=== PATIENT | male | born 1980 | race Caucasian/White ===

== ENCOUNTER 2016-07-04 18:10 | Emergency (ER) | payer BC, OTHER ==
--- NOTE | 2016-07-04 19:01 | ED ---
General Adult HPI - General Chief complaint: Extremity Injury, Upper Stated complaint: thumb pain Time Seen by Provider: 07/04/16 18:19 Source: patient, RN notes reviewed Mode of arrival: ambulatory Limitations: no limitations - History of Present Illness Initial comments: This is a 36-year-old male who presents with right-sided thumb pain after catching his right thumb in a car door yesterday. Patient states he is not having any pain until around 3:30 AM this morning when the pain woke him up. Patient denies any numbness/tingling or weakness. Patient states he did try to drain the thumbnail with a needle earlier today but this did not provide much relief. Patient denies any recent fever, chills, shortness breath, chest pain, abdominal pain, nausea/vomiting/diarrhea, back pain, numbness, tingling, hematuria, headache, or visual changes, or any other complaints. - Related Data Home Medications Medication Instructions Recorded Confirmed Acetaminophen Tab [Tylenol Tab] 1,000 mg PO Q6HR 07/04/16 07/04/16 Ibuprofen [Motrin] 200 - 400 mg PO Q6HR PRN 07/04/16 07/04/16 Lisinopril [Prinivil] 20 mg PO DAILY 07/04/16 07/04/16 Previous Rx's Medication Instructions Recorded QUEtiapine [SEROquel] 25 mg PO HS #7 tab 06/03/15 Allergies Allergy/AdvReac Type Severity Reaction Status Date / Time No Known Allergies Allergy Verified 07/04/16 18:36 Review of Systems ROS Statement: Those systems with pertinent positive or pertinent negative responses have been documented in the HPI. ROS Other: All systems not noted in ROS Statement are negative. Past Medical History Past Medical History: Hypertension Additional Past Medical History / Comment(s): chronic back pain History of Any Multi-Drug Resistant Organisms: None Reported Additional Past Surgical History / Comment(s): epidural shots in back, acl repair Past Psychological History: No Psychological Hx Reported Smoking Status: Never smoker Past Alcohol Use History: None Reported Past Drug Use History: Marijuana General Exam - General Exam Comments Initial Comments: General: The patient is awake and alert, in no distress, and does not appear acutely ill. Neck: The neck is supple, there is no tenderness or JVD. Cardiovascular: There is a regular rate and rhythm. No murmur, rub or gallop is appreciated. Respiratory: Lungs are clear to auscultation, respirations are non-labored, breath sounds are equal. No wheezes, stridor, rales, or rhonchi. Musculoskeletal: There is tenderness to palpation over the distal phalanx of the right first digit. There is ecchymosis and blood collection under the nail of the right first digit. Limited range of motion to the right thumb interphalangeal joint due to pain and swelling. Strength 5/5 and Sensation intact. Radial pulses 2+ bilaterally. Capillary refill is less than 2 seconds. Neurological: A&O x 3. CN II-XII intact, There are no obvious motor or sensory deficits. Coordination appears grossly intact. Speech is normal. Skin: See musculoskeletal. Skin is warm and dry and no rashes or lesions are noted. Psychiatric: Normal mood and affect. Limitations: no limitations Course Vital Signs 07/04/16 18:20 Temperature 97.0 F L Pulse Rate 105 H Respiratory 16 Rate Blood Pressure 170/103 O2 Sat by Pulse 99 Oximetry Medical Decision Making - Medical Decision Making This is a 36-year-old male who presents with a sore right thumb due to getting it stuck in a car door. On physical exam There is tenderness to palpation over the distal phalanx of the right first digit. There is ecchymosis and blood collection under the nail of the right first digit. Limited range of motion to the right thumb interphalangeal joint due to pain and swelling. Strength 5/5 and Sensation intact. Radial pulses 2+ bilaterally. Capillary refill is less than 2 seconds. Patient's elevated blood pressure noted. Patient is asymptomatic at this time and states that he is currently following with his doctor for hypertension since his blood pressure is normally in these ranges. Patient is currently on blood pressure medication at home and does not want treatment in today. An x-ray of the right hand was done and reviewed showing:Negative right hand exam. Reported by Dr. Greenberg. Discussed results with patient. At this time trephination was performed on the right digit's fingernail. There is blood draining from the trephination site. I discussed with patient to rest, ice and use [id number] Tylenol and Motrin as needed for any pain. I discussed If symptoms do not improve in the next 7 days repeat x-rays may be needed to rule out occult fracture. I discussed return parameters. Discussed that patient should follow up with PCP in one to 2 days or return to the EC for any worsening symptoms or for any further concerns. Patient was receptive to this plan and patient will be discharged home. Disposition Clinical Impression: Subungual hematoma of fingernail Disposition: HOME SELF-CARE Condition: Good Instructions: Subungual Hematoma (ED) Additional Instructions: Please rest, ice, elevate and use [id number] Tylenol or Motrin as needed for any pain symptoms. If symptoms do not improve in the next 7 days repeat x- rays may be needed to rule out occult fracture. Please follow-up with family doctor in the next 2 days of symptoms have not improved. Please return to emergency room if the symptoms increase or worsen or for any other concerns. Time of Disposition: 19:23
--- NOTE | 2016-07-04 19:04 | XR ---
EXAMINATION TYPE: XR hand complete RT DATE OF EXAM: 07/04/2016 7:00 PM COMPARISON: NONE HISTORY: Slammed in a car door TECHNIQUE: 3 views FINDINGS: I see no fracture nor dislocation. Metacarpals are intact. Joint spaces are normal. IMPRESSION: Negative right hand exam.
[2016-07-04 19:26] VITALS: BP 170/100; PULSE 70; RESP 18; TEMP 97.9
== END 2016-07-04 19:32 | disposition home or self-care (01) ==
LOC: EC 18:10
DX: S60.111A Contusion of right thumb with damage to nail, initial encounter (principal); I10 Essential (primary) hypertension; Z79.899 Other long term (current) drug therapy; W23.0XXA Caught, crushed, jammed, or pinched between moving objects, initial encounter
CPT/HCPCS: 10160; 99283

== ENCOUNTER 2016-07-04 22:06 | Emergency (ER) | payer BC, OTHER ==
[2016-07-04] MEDS ORDERED: SODIUM CHLORIDE 0.9% 500 ML IV ONE (22:14)
--- NOTE | 2016-07-04 22:17 | ED ---
General Adult HPI - General Stated complaint: Seizure Time Seen by Provider: 07/04/16 22:06 Source: RN notes reviewed - History of Present Illness Initial comments: This is a 36-year-old male presents to the emergency department after having had a seizure that lasted about one half minutes according to EMS his saw him on a couch started to seize last one half minutes and then he was postictal. Patient doesn't remember any of this. Patient states he did have one seizure last summer she was never had one before that or after that. Patient states yesterday smashed his thumb at work he came to the emergency department and went home and took some tramadol for pain. Patient states he really had tramadol from something else so he took it for the pain. Patient was unaware the tramadol can lower seizure threshold. Patient states aside from that he has been feeling fine he has no fever chills cough colds. Patient denies any shortness of breath or chest pain. Patient denies any abdominal pain patient denies nausea vomiting diarrhea. Patient denies any headache patient denies numbness weakness. Patient denies any neck stiffness. Patient denies lightheadedness dizziness or near syncopal episode. Patient denies any recent injury or trauma. Patient denies any recent alcohol use or drug use. - Related Data Home Medications Medication Instructions Recorded Confirmed Acetaminophen Tab [Tylenol Tab] 1,000 mg PO Q6HR 07/04/16 07/04/16 Ibuprofen [Motrin] 200 - 400 mg PO Q6HR PRN 07/04/16 07/04/16 Lisinopril [Prinivil] 20 mg PO DAILY 07/04/16 07/04/16 Previous Rx's Medication Instructions Recorded QUEtiapine [SEROquel] 25 mg PO HS #7 tab 06/03/15 Allergies Allergy/AdvReac Type Severity Reaction Status Date / Time No Known Allergies Allergy Verified 07/04/16 18:36 Review of Systems ROS Statement: Those systems with pertinent positive or pertinent negative responses have been documented in the HPI. ROS Other: All systems not noted in ROS Statement are negative. Past Medical History Past Medical History: Hypertension Additional Past Medical History / Comment(s): chronic back pain History of Any Multi-Drug Resistant Organisms: None Reported Additional Past Surgical History / Comment(s): epidural shots in back, acl repair Past Psychological History: No Psychological Hx Reported Smoking Status: Never smoker Past Alcohol Use History: None Reported Past Drug Use History: Marijuana General Exam - General Exam Comments Initial Comments: GENERAL: Patient is well-developed and well-nourished. Patient is nontoxic and well- hydrated and is in no acute distress. ENT: Neck is soft and supple. No significant lymphadenopathy is noted. Oropharynx is clear. Moist mucous membranes. Neck has full range of motion without eliciting any pain. EYES: The sclera were anicteric and conjunctiva were pink and moist. Extraocular movements were intact and pupils were equal round and reactive to light. Eyelids were unremarkable. PULMONARY: Unlabored respirations. Good breath sounds bilaterally. No audible rales rhonchi or wheezing was noted. CARDIOVASCULAR: Patient is tachycardic at about 100 beats minute ABDOMEN: Soft and nontender with normal bowel sounds. No palpable organomegaly was noted. There is no palpable pulsatile mass. SKIN: Skin is clear with no lesions or rashes and otherwise unremarkable. NEUROLOGIC: Patient is alert and oriented x3. Cranial nerves II through XII are grossly intact. Motor and sensory are also intact. Normal speech, volume and content. Symmetrical smile. MUSCULOSKELETAL: Normal extremities with adequate strength and full range of motion. No lower extremity swelling or edema. No calf tenderness. LYMPHATICS: No significant lymphadenopathy is noted PSYCHIATRIC: Normal psychiatric evaluation. Normal interpersonal interactions appears functionally intact in deals appropriately with others. No signs of depression. No signs of anxiety. Course Vital Signs 07/04/16 07/04/16 07/04/16 22:20 22:39 23:14 Temperature 98.1 F 98.5 F Pulse Rate 92 114 H 109 H Respiratory 18 18 20 Rate Blood Pressure 168/101 165/81 159/89 O2 Sat by Pulse 94 L 96 99 Oximetry Medical Decision Making - Medical Decision Making EKG shows sinus tachycardia at 123 bpm OK interval is 160s to [place] is 82 QT interval 320 QTC is 458. Patient's EKG shows no ST segment elevation or depression or T-wave abdomen is noted - Lab Data Result diagrams: 07/04/16 22:25 07/04/16 22:25 Lab Results 07/04/16 07/04/16 07/04/16 Range/Units 22:25 22:25 23:10 WBC 12.2 H (3.8-10.6) k/uL RBC 5.18 (4.30-5.90) m/uL Hgb 15.7 (13.0-17.5) gm/dL Hct 46.0 (39.0-53.0) % MCV 88.8 (80.0-100.0) fL MCH 30.4 (25.0-35.0) pg MCHC 34.2 (31.0-37.0) g/dL RDW 13.0 (11.5-15.5) % Plt Count 236 (150-450) k/uL Neutrophils % 66 % Lymphocytes % 22 % Monocytes % 6 % Eosinophils % 4 % Basophils % 1 % Neutrophils # 8.0 H (1.3-7.7) k/uL Lymphocytes # 2.7 (1.0-4.8) k/uL Monocytes # 0.8 (0-1.0) k/uL Eosinophils # 0.4 (0-0.7) k/uL Basophils # 0.1 (0-0.2) k/uL Sodium 141 (137-145) mmol/L Potassium 3.4 L (3.5-5.1) mmol/L Chloride 103 (98-107) mmol/L Carbon Dioxide 22 (22-30) mmol/L Anion Gap 16 mmol/L BUN 13 (9-20) mg/dL Creatinine 0.90 (0.66-1.25) mg/dL Est GFR (MDRD) Af Amer >60 (>60 ml/min/1.73 sqM) Est GFR (MDRD) Non-Af >60 (>60 ml/min/1.73 sqM) Glucose 120 H (74-99) mg/dL Calcium 9.4 (8.4-10.2) mg/dL Total Bilirubin 0.8 (0.2-1.3) mg/dL AST 33 (17-59) U/L ALT 57 (21-72) U/L Alkaline Phosphatase 63 (38-126) U/L Total Protein 7.9 (6.3-8.2) g/dL Albumin 4.9 (3.5-5.0) g/dL Urine Opiates Screen Detected H (NotDetected) Ur Oxycodone Screen Detected H (NotDetected) Urine Methadone Screen Not Detected (NotDetected) Ur Propoxyphene Screen Not Detected (NotDetected) Ur Barbiturates Screen Not Detected (NotDetected) U Tricyclic Antidepress Not Detected (NotDetected) Ur Phencyclidine Scrn Not Detected (NotDetected) Ur Amphetamines Screen Not Detected (NotDetected) U Methamphetamines Scrn Not Detected (NotDetected) U Benzodiazepines Scrn Detected H (NotDetected) Urine Cocaine Screen Not Detected (NotDetected) U Marijuana (THC) Screen Detected H (NotDetected) Disposition Clinical Impression: Generalized seizure Disposition: HOME SELF-CARE Instructions: Recurrent Seizures in Adults (ED) Additional Instructions: Patient cannot drive for 6 months. Patient should stop tramadol because it lowers the seizure threshold. Patient should follow-up with neurology as soon as possible Referrals: Efraín Bunch MD [Primary Care Provider] - 1-2 days Time of Disposition: 23:39
[2016-07-04 22:31] LABS: Basophils # (A) 0.1 k/uL (0-0.2); Basophils % (A) 1 %; CH 31.4; CHCM 35.5; Eosinophils # (A) 0.4 k/uL (0-0.7); Eosinophils % (A) 4 %; HDW 2.61; HGB 15.7 gm/dL (13.0-17.5); Luc # (Auto) 0.22; Luc % (Auto) 2; Lymphocytes # (A) 2.7 k/uL (1.0-4.8); Lymphocytes % (A) 22 %; MCH 30.4 pg (25.0-35.0); MCHC 34.2 g/dL (31.0-37.0); MCV 88.8 fL (80.0-100.0); Mean Platelet Volume 7.6; Monocytes # (A) 0.8 k/uL (0-1.0); Monocytes % (A) 6 %; Neutrophils % (A) 66 %; RBC 5.18 m/uL (4.30-5.90); WBC 12.2 k/uL (3.8-10.6); WBC (Perox) 12.05
[2016-07-04 22:40] LABS: ALT 57 U/L (21-72); AST 33 U/L (17-59); Alkaline Phosphatase 63 U/L (38-126); Anion Gap 16 mmol/L; Blood Urea Nitrogen 13 mg/dL (9-20); Calcium 9.4 mg/dL (8.4-10.2); Carbon Dioxide 22 mmol/L (22-30); Chloride 103 mmol/L (98-107); Glucose 120 mg/dL (74-99); Non-African American GFR(MDRD) >60 (>60 ml/min/1.73 sqM); Potassium 3.4 mmol/L (3.5-5.1); Sodium 141 mmol/L (137-145); Total Bilirubin 0.8 mg/dL (0.2-1.3); Total Protein 7.9 g/dL (6.3-8.2)
[2016-07-04 23:15] VITALS: BP 159/89; PULSE 109; RESP 20; TEMP 98.5
== END 2016-07-04 23:44 | disposition home or self-care (01) ==
LOC: EC 22:06
DX: G40.909 Epilepsy, unspecified, not intractable, without status epilepticus (principal); I10 Essential (primary) hypertension; Z79.899 Other long term (current) drug therapy
CPT/HCPCS: 36415; 80053; 80306; 85025; 93005; 96360; 99284

== ENCOUNTER 2016-07-30 18:51 | Emergency (ER) | payer BC, OTHER ==
[2016-07-30 19:12] VITALS: BP 130/87; PULSE 87; RESP 20; TEMP 99.4
--- NOTE | 2016-07-30 19:28 | ED ---
General Adult HPI - General Chief complaint: Dental/Oral Stated complaint: broken tooth Time Seen by Provider: 07/30/16 19:15 Source: patient, RN notes reviewed Mode of arrival: ambulatory Limitations: no limitations - History of Present Illness Initial comments: This is a 36-year-old male presents with right-sided dental pain 1 month. Patient states he has a fractured tooth but has only been bothering him for the last few days. Patient denies any fever but states he has had some chills. Patient is able to eat soft foods. Patient denies any facial swelling, purulent drainage or foul odor. Patient states he is able to get into his dentist on but he cant wait that long. Patient denies any recent shortness breath, chest pain, abdominal pain, nausea/vomiting/diarrhea, back pain, numbness, tingling, hematuria, headache, or visual changes, or any other complaints. - Related Data Home Medications Medication Instructions Recorded Confirmed Ibuprofen [Advil] 200 - 400 mg PO Q8HR PRN 07/30/16 07/30/16 levETIRAcetam [Keppra] 500 mg PO Q12HR 07/30/16 07/30/16 Previous Rx's Medication Instructions Recorded HYDROcodone/APAP 5-325MG [Laurens 1 tab PO Q6HR #8 tab 07/30/16 5-325] Penicillin V Potassium [Pen Vee K] 500 mg PO BID 5 Days 07/30/16 Allergies Allergy/AdvReac Type Severity Reaction Status Date / Time tramadol AdvReac SEZIURES Verified 07/30/16 19:22 Review of Systems ROS Statement: Those systems with pertinent positive or pertinent negative responses have been documented in the HPI. ROS Other: All systems not noted in ROS Statement are negative. Past Medical History Past Medical History: Hypertension Additional Past Medical History / Comment(s): chronic back pain History of Any Multi-Drug Resistant Organisms: None Reported Additional Past Surgical History / Comment(s): epidural shots in back, acl repair Past Psychological History: No Psychological Hx Reported Smoking Status: Never smoker Past Alcohol Use History: None Reported Past Drug Use History: Marijuana General Exam - General Exam Comments Initial Comments: General: The patient is awake and alert, in no distress, and does not appear acutely ill. Eye: Pupils are equal, round and reactive to light, extra-ocular movements are intact. No nystagmus. There is normal conjunctiva bilaterally. No signs of icterus. Ears: TMs pink and pearly with intact cone of light bilaterally. Normal external ear canals Nose: Nasal turbinates pink and moist Mouth and throat: There is a fractured tooth #5, with no surrounding erythema, very little drainage or sign of abscess. This area is tender to palpation. There are moist mucous membranes and no oral lesions. Neck: The neck is supple, there is no tenderness or JVD. Cardiovascular: There is a regular rate and rhythm. No murmur, rub or gallop is appreciated. Respiratory: Lungs are clear to auscultation, respirations are non-labored, breath sounds are equal. No wheezes, stridor, rales, or rhonchi. Musculoskeletal: Normal ROM, no tenderness. Strength 5/5. Sensation intact. Radial pulses equal bilaterally 2+. Neurological: A&O x 3. CN II-XII intact, There are no obvious motor or sensory deficits. Coordination appears grossly intact. Speech is normal. Skin: Skin is warm and dry and no rashes or lesions are noted. Psychiatric: Cooperative, appropriate mood & affect, normal judgment. Limitations: no limitations Course Vital Signs 07/30/16 19:10 Temperature 99.4 F Pulse Rate 87 Respiratory 20 Rate Blood Pressure 130/87 O2 Sat by Pulse 97 Oximetry Medical Decision Making - Medical Decision Making This is a 36-year-old male presents with right-sided dental pain. On physical exam patient is afebrile in the EC. There is a fractured tooth #5, with no surrounding erythema, very little drainage or sign of abscess. This area is tender to palpation. There are moist mucous membranes and no oral lesions. Discussed the patient with on a course of antibiotics. Discussed with the patient will be given Laurens for breakthrough pain. Patient is taking Laurens was no problems. I discussed the patient should use Tylenol and Motrin for the pain first. Discussed that patient needs to follow-up with his dentist as soon as possible. I discussed return parameters.Discussed that patient should follow up with PCP in one to 2 days or return to the EC for any worsening symptoms or any further concerns. Patient was receptive to this plan patient was discharged home. Disposition Clinical Impression: Pain, dental Disposition: HOME SELF-CARE Condition: Good Instructions: Toothache (ED) Additional Instructions: Please finish the entire course of antibiotics. Please use Tylenol and Motrin for pain. Please only use Laurens for breakthrough pain. Please do not drive, drink alcohol or go to work while taking Laurens as it may make you drowsy. Please follow-up with your dentist as already scheduled. [facility] dental plan: [address] [place] [address], . [employer]: Have to pay $50 for x-rays and the rest is covered. [phone].Please use medication as discussed. Please follow-up with family doctor in the next 2 days of symptoms have not improved. Please return to emergency room if the symptoms increase or worsen or for any other concerns. Prescriptions: HYDROcodone/APAP 5-325MG [Laurens 5-325] 1 tab PO Q6HR #8 tab Penicillin V Potassium [Pen Vee K] 500 mg PO BID 5 Days Time of Disposition: 19:24
== END 2016-07-30 19:33 | disposition home or self-care (01) ==
LOC: EC 18:51
DX: S02.5XXA Fracture of tooth (traumatic), initial encounter for closed fracture (principal); K08.89 Other specified disorders of teeth and supporting structures; Z88.5 Allergy status to narcotic agent; Z79.899 Other long term (current) drug therapy; X58.XXXA Exposure to other specified factors, initial encounter
CPT/HCPCS: 99283

== ENCOUNTER → 2016-08-14 | Outpatient (CLI) | payer OTHER ==
--- NOTE | 2016-08-15 05:44 | EEG ---
DATE OF SERVICE: 08/14/2016 REASON FOR TESTING: Seizure. AGE: 36Y CURRENT ANTIEPILEPTIC MEDICATIONS: Lamictal. DESCRIPTION OF THE PROCEDURE: This EEG was performed using a 21-channel digital electroencephalograph, following the international 10-20 system. DESCRIPTION OF THE RECORDING: From the beginning of the tracing, and with the patient's eyes closed, the background rhythm was mostly consisting of 9 Hz alpha frequency in the posterior occipital leads. No obvious asymmetry is seen. Photic stimulation was performed with a minimal driving response seen. No pathological waves were elicited. Hyperventilation was performed with a mild build-up of amplitude seen. Again, no pathological waves were elicited. The patient does reach stage II of sleep during the tracing and occasional sleep spindles are seen. No epileptiform discharges were seen. His EKG lead showed a regular rate and rhythm. INTERPRETATION: This asleep and awake EEG can be considered within normal limits. There was no asymmetry seen. No epileptiform discharges were noticed. The absence of epileptiform discharges does not rule out the diagnosis of epilepsy, therefore, clinical correlation is recommended.
== END | disposition home or self-care (01) ==
LOC: NEUROMAIN 09:25
PROVIDERS: ATTEND Psychiatry & Neurology Neurology
DX: G40.909 Epilepsy, unspecified, not intractable, without status epilepticus (principal); G47.00 Insomnia, unspecified; F41.9 Anxiety disorder, unspecified; Z79.899 Other long term (current) drug therapy
CPT/HCPCS: 95819

== ENCOUNTER → 2016-08-15 | Outpatient (CLI) | payer OTHER ==
--- NOTE | 2016-08-15 21:31 | MR ---
MRI of the brain with and without contrast HISTORY: Seizure TECHNIQUE: T1-weighted sagittal, T2, FLAIR, and diffusion axial, postcontrast T1 axi al and coronal views of the brain are submitted. CONTRAST: 19 mL of MultiHance COMPARISON: 08/29/2011 MRI, CT brain 06/03/2015 FINDINGS: There is no evidence of acute ischemia. The ventricles, basal cisterns, and sulci overlying the co nvexities are consistent with the patient's age. There is no mass effect or enhancing mass. Craniocervical junction maintained. Sella turcica has a normal appearance. No evidence of cerebellopo ntine angle mass. Changes of chronic sinusitis noted. WHITE MATTER: No sizable abnormal areas of signal within the white matter. IMPRESSION: 1. No acute intracranial process. 2. Mild chronic sinusitis.
== END | disposition home or self-care (01) ==
LOC: RADMRIMAIN 20:08
PROVIDERS: ATTEND Psychiatry & Neurology Neurology
DX: F41.9 Anxiety disorder, unspecified (principal); G47.00 Insomnia, unspecified; G40.909 Epilepsy, unspecified, not intractable, without status epilepticus
CPT/HCPCS: 70553; A9577

== ENCOUNTER 2016-11-04 12:48 | Emergency (ER) | payer OTHER ==
[2016-11-04 13:00] VITALS: BP 144/84; PULSE 125; RESP 16; TEMP 98.7
[2016-11-04] MEDS ORDERED: SODIUM CHLORIDE 0.9% 1,000 ML IV STA (13:11)
[2016-11-04] MEDS ORDERED: HYDROmorphone 1 MG/ML 1 ML SYRINGE IVP STA ×2 (13:24→15:03)
[2016-11-04 13:29] LABS: Glucose,Whole Blood 142 mg/dL (75-99)
--- NOTE | 2016-11-04 13:29 | ED ---
Seizure HPI - General Chief Complaint: Seizure Stated Complaint: seizure Time Seen by Provider: 11/04/16 13:11 Source: patient, EMS, RN notes reviewed Mode of arrival: EMS Limitations: no limitations - History of Present Illness Initial Comments: Patient is a 36-year-old male presents emergency for evaluation of seizure. Patient states he has a history of seizures. Patient is having increasing seizures over the past year and a half. Patient states the last seizure was about a week and a half ago and he is admitted at [facility] for 5 days. Patient states he has a neurologist at [facility]. Patient states today he had another seizure. Patient's is present with patient. Patient's witnessed the incident. Patient's states that patient was sitting on a recliner and fell forward hitting his face having a total tonic-clonic seizure. Patient's states the seizure lasted about 2-1/2 minutes. Patient's states that patient did have urinary incontinence. Patient's states this is the longest seizure patient has had. Patient's states that patient was postictal after the incident. Patient states he was recently switched from Keppra to Trileptal about a week ago. Patient denies alcohol use or illicit drug use. Patient also states that increasing low back pain. Patient states he has a history degenerative disc disease and after the seizure he began having increasing pain. Patient denies paresthesias. Patient denies saddle anesthesia. Patient denies current urinary or fecal incontinence. Patient denies chest pain or shortness of breath. Patient denies headache or dizziness. Patient denies fevers or chills. - Related Data Home Medications Medication Instructions Recorded Confirmed Ibuprofen [Advil] 200 - 400 mg PO Q8HR PRN 07/30/16 11/04/16 ALPRAZolam [Xanax] 1 mg PO DAILY PRN 11/04/16 11/04/16 HYDROcodone/APAP 5-325MG [[place] 1 tab PO Q4HR PRN 11/04/16 11/04/16 5-325] Lisinopril 20 mg PO DAILY 11/04/16 11/04/16 Mirtazapine [Remeron] 45 mg PO HS PRN 11/04/16 11/04/16 OXcarbazepine [Trileptal] 300 mg PO BID 11/04/16 11/04/16 Allergies Allergy/AdvReac Type Severity Reaction Status Date / Time levetiracetam [From Keppra] Allergy Unknown Verified 11/04/16 13:27 clonazepam AdvReac Confusion Verified 11/04/16 13:27 lamotrigine [From Lamictal] AdvReac Confusion Verified 11/04/16 13:27 tramadol AdvReac SEZIURES Verified 11/04/16 13:27 Review of Systems ROS Statement: Those systems with pertinent positive or pertinent negative responses have been documented in the HPI. ROS Other: All systems not noted in ROS Statement are negative. Past Medical History Past Medical History: Hypertension, Seizure Disorder Additional Past Medical History / Comment(s): chronic back pain History of Any Multi-Drug Resistant Organisms: None Reported Additional Past Surgical History / Comment(s): epidural shots in back, acl repair, torn mrl right knee, Past Psychological History: No Psychological Hx Reported Smoking Status: Never smoker Past Alcohol Use History: None Reported Past Drug Use History: Marijuana General Exam - General Exam Comments Initial Comments: Sitting in exam room, no acute distress. Limitations: no limitations General appearance: alert, in no apparent distress Head exam: Present: normal inspection. Absent: atraumatic (Slight amount of ecchymosis over right inferior orbit) Eye exam: Present: normal appearance, PERRL, EOMI Pupils: Present: normal accommodation ENT exam: Present: normal exam, other (No lacerations noted inside of the mouth. ) Neck exam: Present: normal inspection Respiratory exam: Present: normal lung sounds bilaterally. Absent: respiratory distress Cardiovascular Exam: Present: normal rhythm, tachycardia, normal heart sounds Extremities exam: Present: normal inspection Back exam: Present: normal inspection Neurological exam: Present: alert, oriented X3, CN II-XII intact Expanded Patient oriented to: Present: person, place, time Speech: Present: fluid speech Cranial nerves: EOM's Intact: Normal, Facial Sensation: Normal Sensory exam: Upper Extremity Light Touch: Normal, Lower Extremity Light Touch: Normal Motor strength exam: RUE: 5, LUE: 5, RLE: 5, LLE: 5 Eye Response: (4) open spontaneously Motor Response: (6) obeys commands Verbal Response: (5) oriented Psychiatric exam: Present: normal affect, normal mood Skin exam: Present: warm, dry, intact, normal color. Absent: rash Course Vital Signs 11/04/16 12:55 Temperature 98.7 F Pulse Rate 125 H Respiratory 16 Rate Blood Pressure 144/84 O2 Sat by Pulse 95 Oximetry Medical Decision Making - Medical Decision Making Patient is a 36-year-old male presents emergency room for evaluation post seizure. No seizure activity while he was here. Patient was completely alert and oriented 3 while he was here. Labs showed no concerning findings. Brain and C-spine CT negative for any acute findings. Facial CT negative for any acute findings. Results discussed with patient. Advised patient to follow-up with his neurologist tomorrow. Patient states he understands everything that was discussed with him. Return parameters discussed. Case discussed with Dr. Babin. - Lab Data Result diagrams: 11/04/16 13:05 11/04/16 13:05 Lab Results 11/04/16 11/04/16 11/04/16 Range/Units 13:05 13:05 13:28 WBC 11.6 H (3.8-10.6) k/uL RBC 5.23 (4.30-5.90) m/uL Hgb 17.0 (13.0-17.5) gm/dL Hct 46.0 (39.0-53.0) % MCV 88.0 (80.0-100.0) fL MCH 32.5 (25.0-35.0) pg MCHC 36.9 (31.0-37.0) g/dL RDW 13.6 (11.5-15.5) % Plt Count 232 (150-450) k/uL Neutrophils % 79 % Lymphocytes % 12 % Monocytes % 6 % Eosinophils % 3 % Basophils % 0 % Neutrophils # 9.1 H (1.3-7.7) k/uL Lymphocytes # 1.4 (1.0-4.8) k/uL Monocytes # 0.7 (0-1.0) k/uL Eosinophils # 0.3 (0-0.7) k/uL Basophils # 0.0 (0-0.2) k/uL Sodium 144 (137-145) mmol/L Potassium 3.9 (3.5-5.1) mmol/L Chloride 107 (98-107) mmol/L Carbon Dioxide 25 (22-30) mmol/L Anion Gap 12 mmol/L BUN 11 (9-20) mg/dL Creatinine 0.84 (0.66-1.25) mg/dL Est GFR (MDRD) Af Amer >60 (>60 ml/min/1.73 sqM) Est GFR (MDRD) Non-Af >60 (>60 ml/min/1.73 sqM) Glucose 165 H (74-99) mg/dL POC Glucose (mg/dL) 142 H (75-99) mg/dL POC Glu Drier Take Off Tender ID Vaishali Huddleston Calcium 9.9 (8.4-10.2) mg/dL Total Bilirubin 0.8 (0.2-1.3) mg/dL AST 46 (17-59) U/L ALT 70 (21-72) U/L Alkaline Phosphatase 60 (38-126) U/L Total Protein 7.9 (6.3-8.2) g/dL Albumin 4.9 (3.5-5.0) g/dL Urine Color Urine Appearance (Clear) Urine pH (5.0-8.0) Ur Specific [place] (1.001-1.035) Urine Protein (Negative) Urine Glucose (UA) (Negative) Urine Ketones (Negative) Urine Blood (Negative) Urine Nitrite (Negative) Urine Bilirubin (Negative) Urine Urobilinogen (<2.0) mg/dL Ur Leukocyte Esterase (Negative) Urine RBC (0-5) /hpf Urine WBC (0-5) /hpf Urine Bacteria (None) /hpf Hyaline Casts (0-2) /lpf Urine Mucus (None) /hpf Urine Sperm (None) /hpf Salicylates <1.0 mg/dL Urine Opiates Screen (NotDetected) Ur Oxycodone Screen (NotDetected) Urine Methadone Screen (NotDetected) Ur Propoxyphene Screen (NotDetected) Acetaminophen <10.0 ug/mL Ur Barbiturates Screen (NotDetected) U Tricyclic Antidepress (NotDetected) Ur Phencyclidine Scrn (NotDetected) Ur Amphetamines Screen (NotDetected) U Methamphetamines Scrn (NotDetected) U Benzodiazepines Scrn (NotDetected) Urine Cocaine Screen (NotDetected) U Marijuana (THC) Screen (NotDetected) Serum Alcohol <10 mg/dL 11/04/16 Range/Units 14:12 WBC (3.8-10.6) k/uL RBC (4.30-5.90) m/uL Hgb (13.0-17.5) gm/dL Hct (39.0-53.0) % MCV (80.0-100.0) fL MCH (25.0-35.0) pg MCHC (31.0-37.0) g/dL RDW (11.5-15.5) % Plt Count (150-450) k/uL Neutrophils % % Lymphocytes % % Monocytes % % Eosinophils % % Basophils % % Neutrophils # (1.3-7.7) k/uL Lymphocytes # (1.0-4.8) k/uL Monocytes # (0-1.0) k/uL Eosinophils # (0-0.7) k/uL Basophils # (0-0.2) k/uL Sodium (137-145) mmol/L Potassium (3.5-5.1) mmol/L Chloride (98-107) mmol/L Carbon Dioxide (22-30) mmol/L Anion Gap mmol/L BUN (9-20) mg/dL Creatinine (0.66-1.25) mg/dL Est GFR (MDRD) Af Amer (>60 ml/min/1.73 sqM) Est GFR (MDRD) Non-Af (>60 ml/min/1.73 sqM) Glucose (74-99) mg/dL POC Glucose (mg/dL) (75-99) mg/dL POC Glu Drier Take Off Tender ID Calcium (8.4-10.2) mg/dL Total Bilirubin (0.2-1.3) mg/dL AST (17-59) U/L ALT (21-72) U/L Alkaline Phosphatase (38-126) U/L Total Protein (6.3-8.2) g/dL Albumin (3.5-5.0) g/dL Urine Color Yellow Urine Appearance Clear (Clear) Urine pH 5.5 (5.0-8.0) Ur Specific [place] 1.016 (1.001-1.035) Urine Protein 1+ H (Negative) Urine Glucose (UA) Negative (Negative) Urine Ketones 1+ H (Negative) Urine Blood Small H (Negative) Urine Nitrite Negative (Negative) Urine Bilirubin Negative (Negative) Urine Urobilinogen <2.0 (<2.0) mg/dL Ur Leukocyte Esterase Negative (Negative) Urine RBC 1 (0-5) /hpf Urine WBC 2 (0-5) /hpf Urine Bacteria Rare H (None) /hpf Hyaline Casts 5 H (0-2) /lpf Urine Mucus Rare H (None) /hpf Urine Sperm Rare (None) /hpf Salicylates mg/dL Urine Opiates Screen Not Detected (NotDetected) Ur Oxycodone Screen Not Detected (NotDetected) Urine Methadone Screen Not Detected (NotDetected) Ur Propoxyphene Screen Not Detected (NotDetected) Acetaminophen ug/mL Ur Barbiturates Screen Not Detected (NotDetected) U Tricyclic Antidepress Not Detected (NotDetected) Ur Phencyclidine Scrn Not Detected (NotDetected) Ur Amphetamines Screen Detected H (NotDetected) U Methamphetamines Scrn Not Detected (NotDetected) U Benzodiazepines Scrn Detected H (NotDetected) Urine Cocaine Screen Not Detected (NotDetected) U Marijuana (THC) Screen Detected H (NotDetected) Serum Alcohol mg/dL - Radiology Data Radiology results: report reviewed, image reviewed Disposition Clinical Impression: Seizure disorder Disposition: HOME SELF-CARE Condition: Good Instructions: Recurrent Seizures in Adults (ED) Additional Instructions: Continue taking all prescribed medications as directed. Please follow-up with neurologist tomorrow. If any new symptom arises or symptoms worsen, return to ER as soon as possible. Referrals: Zena Villavicencio MD [Primary Care Provider] - 1-2 days Time of Disposition: 15:01
[2016-11-04 13:35] LABS: Basophils % (A) 0 %; CH 31.7; CHCM 36.2; Eosinophils # (A) 0.3 k/uL (0-0.7); Eosinophils % (A) 3 %; HDW 2.56; Luc # (Auto) 0.13; Luc % (Auto) 1; Lymphocytes # (A) 1.4 k/uL (1.0-4.8); Lymphocytes % (A) 12 %; MCH 32.5 pg (25.0-35.0); MCHC 36.9 g/dL (31.0-37.0); Mean Platelet Volume 7.1; Monocytes # (A) 0.7 k/uL (0-1.0); Monocytes % (A) 6 %; Neutrophils # (A) 9.1 k/uL (1.3-7.7); Neutrophils % (A) 79 %; RBC 5.23 m/uL (4.30-5.90); RDW 13.6 % (11.5-15.5); WBC 11.6 k/uL (3.8-10.6); WBC (Perox) 11.72
[2016-11-04 13:45] LABS: ALT 70 U/L (21-72); AST 46 U/L (17-59); Acetaminophen <10.0 ug/mL; Alcohol <10 mg/dL; Alkaline Phosphatase 60 U/L (38-126); Anion Gap 12 mmol/L; Blood Urea Nitrogen 11 mg/dL (9-20); Calcium 9.9 mg/dL (8.4-10.2); Carbon Dioxide 25 mmol/L (22-30); Chloride 107 mmol/L (98-107); Glucose 165 mg/dL (74-99); Non-African American GFR(MDRD) >60 (>60 ml/min/1.73 sqM); Potassium 3.9 mmol/L (3.5-5.1); Salicylate <1.0 mg/dL; Sodium 144 mmol/L (137-145); Total Bilirubin 0.8 mg/dL (0.2-1.3); Total Protein 7.9 g/dL (6.3-8.2)
[2016-11-04 14:42] LABS: Appearance,Urine Clear (Clear); Bacteria,Urine Rare /hpf; Bilirubin,Urine Negative (Negative); Glucose,Urine (UA) Negative (Negative); Ketones,Urine 1+ (Negative); Leukocyte Esterase,Urine Negative (Negative); Mucus,Urine Rare /hpf; Nitrite,Urine Negative (Negative); PH, Urine 5.5 (5.0-8.0); Particle Count 3954; Protein,Urine 1+ (Negative); RBC,Urine 1 /hpf (0-5); Specific Gravity,Urine 1.016 (1.001-1.035); Sperm,Urine Rare /hpf; UA Billing (MACRO vs. MICRO) MICRO; Urobilinogen,Urine <2.0 mg/dL (<2.0); WBC,Urine 2 /hpf (0-5)
--- NOTE | 2016-11-04 14:43 | CT ---
EXAMINATION TYPE: CT facial bones wo con DATE OF EXAM: 11/04/2016 2:01 PM COMPARISON: NONE HISTORY: Seizure today with frontal and facial injuries. Complains of headache and facial pain. CT DLP: 2511 mGycm Automated exposure control for dose reduction was used. TECHNIQUE: CT scan of the sinuses is performed without contrast, axial images are obtained, coronal r eformatted images are also reviewed. FINDINGS: The orbital margins are intact. There is no evidence of a blowout fracture. There is normal aeration of the paranasal sinuses. The nasal bone appears intact. Zygomatic arches appear intact. Ma ndible appears intact. The temporomandibular joints appear normal. There is no sign of orbital mass. There is mild soft tissue scalp swelling over the frontal bone. IMPRESSION: No fracture. Mild frontal scalp soft tissue swelling.
--- NOTE | 2016-11-04 14:45 | CT ---
EXAMINATION TYPE: CT brain heriberto wo con DATE OF EXAM: 11/04/2016 2:01 PM COMPARISON: NONE HISTORY: Seizure today with frontal and facial injuries. Complains of headache and facial pain. CT DLP: 2511 mGycm Automated exposure control for dose reduction was used. TECHNIQUE: CT scan of the head and cervical spine are performed without contrast. FINDINGS: Ventricles and sulci appear normal. There is no mass effect nor midline shift. There is n o sign of intracranial hemorrhage. The calvarium is intact. The cervical vertebra have normal spacing and alignment. Facet joints appear normal. Skull base is in tact. Prevertebral soft tissues appear normal. IMPRESSION: Normal CT scan of the brain. Normal CT scan of the cervical spine. No fracture.
== END 2016-11-04 16:00 | disposition home or self-care (01) ==
LOC: EC 12:48
DX: G40.909 Epilepsy, unspecified, not intractable, without status epilepticus (principal); S05.11XA Contusion of eyeball and orbital tissues, right eye, initial encounter; R00.0 Tachycardia, unspecified; M54.5 Low back pain; R32 Unspecified urinary incontinence; I10 Essential (primary) hypertension; Z79.899 Other long term (current) drug therapy; Z88.5 Allergy status to narcotic agent; Z88.8 Allergy status to other drugs, medicaments and biological substances; W01.10XA Fall on same level from slipping, tripping and stumbling with subsequent striking against unspecified object, initial encounter; Y93.89 Activity, other specified
CPT/HCPCS: 36415; 93005; 80053; 80183; 85025; 81001; 80306; 83520 ×2; 80320; 72125; 70486; 70450; 99285; 96374; 96376; 96361; J1170

== ENCOUNTER 2016-11-16 13:17 | Emergency (ER) | payer OTHER ==
[2016-11-16 13:56] VITALS: RESP 16
[2016-11-16] MEDS ORDERED: DEXAMETHASONE 4 MG TAB PO STA (14:22)
[2016-11-16 14:29] VITALS: BP 161/111; PULSE 80; TEMP 98.3
--- NOTE | 2016-11-16 14:29 | ED ---
General Adult HPI - General Chief complaint: ENT Stated complaint: Med reaction Time Seen by Provider: 11/16/16 13:37 Source: patient, RN notes reviewed Mode of arrival: ambulatory Limitations: no limitations - History of Present Illness Initial comments: Patient's 36-year-old male who presents emergency room today with a chief complaint of swelling to the right side of the face over the last 3 days. Patient admits that he believes is related to her Trileptal. States dose was increased 2 weeks ago from 300-450 twice a day. Patient states been taking his medication but the last 3 days his noticed some swelling to the right side. feels that his eye closing because the swelling. He denies any other complaints or associated symptoms. is not doctor or neurologist. has not tried any other medications for this. Patient denies any recent fever, chills, shortness of breath, chest pain, back pain, abdominal pain, nausea or vomiting, numbness or tingling, dysuria or hematuria, constipation or diarrhea, visual changes, or any other complaints. - Related Data Home Medications Medication Instructions Recorded Confirmed Ibuprofen [Advil] 200 - 400 mg PO Q8HR PRN 07/30/16 11/16/16 ALPRAZolam [Xanax] 1 mg PO DAILY PRN 11/04/16 11/16/16 HYDROcodone/APAP 5-325MG [[place] 1 tab PO Q4HR PRN 11/04/16 11/16/16 5-325] Lisinopril 20 mg PO DAILY 11/04/16 11/16/16 Mirtazapine [Remeron] 45 mg PO HS PRN 11/04/16 11/16/16 OXcarbazepine [Trileptal] 300 mg PO BID 11/04/16 11/16/16 Allergies Allergy/AdvReac Type Severity Reaction Status Date / Time levetiracetam [From Keppra] Allergy Unknown Verified 11/16/16 14:21 clonazepam AdvReac Confusion Verified 11/16/16 14:21 lamotrigine [From Lamictal] AdvReac Confusion Verified 11/16/16 14:21 tramadol AdvReac SEZIURES Verified 11/16/16 14:21 Review of Systems ROS Statement: Those systems with pertinent positive or pertinent negative responses have been documented in the HPI. ROS Other: All systems not noted in ROS Statement are negative. Past Medical History Past Medical History: Hypertension, Seizure Disorder Additional Past Medical History / Comment(s): chronic back pain History of Any Multi-Drug Resistant Organisms: None Reported Past Surgical History: Orthopedic Surgery Additional Past Surgical History / Comment(s): epidural shots in back, acl repair, torn mrl right knee, Past Psychological History: Anxiety, Bipolar Smoking Status: Never smoker Past Alcohol Use History: None Reported Past Drug Use History: Marijuana General Exam - General Exam Comments Initial Comments: General: The patient is awake and alert, in no distress, and does not appear acutely ill. Eye: Pupils are equal, round and reactive to light, extra-ocular movements are intact. No nystagmus. There is normal conjunctiva bilaterally. No signs of icterus. Ears, nose, mouth and throat: There are moist mucous membranes and no oral lesions. Mild swelling around the right eye. Extraocular movements are intact. No tenderness on exam. Dental pain. Neck: The neck is supple, there is no tenderness or JVD. Cardiovascular: There is a regular rate and rhythm. No murmur, rub or gallop is appreciated. Respiratory: Lungs are clear to auscultation, respirations are non-labored, breath sounds are equal. No wheezes, stridor, rales, or rhonchi. Gastrointestinal: Soft, non-distended, non-tender abdomen without masses or organomegaly noted. There is no rebound or guarding present. No CVA tenderness. Bowel sounds are unremarkable. Musculoskeletal: Normal ROM, no tenderness. Strength 5/5. Sensation intact. Pulses equal bilaterally 2+. Neurological: A&O x 3. CN II-XII intact, There are no obvious motor or sensory deficits. Coordination appears grossly intact. Speech is normal. Skin: Skin is warm and dry and no rashes or lesions are noted. Psychiatric: Cooperative, appropriate mood & affect, normal judgment. Limitations: no limitations Course Vital Signs 11/16/16 11/16/16 13:21 13:55 Temperature 98 F Pulse Rate 78 Respiratory 18 16 Rate Blood Pressure 151/109 161/106 O2 Sat by Pulse 95 Oximetry Medical Decision Making - Medical Decision Making Case discussed in detail with attending physician Dr. Babin. Patient advised to continue taking Trileptal follow-up with his neurologist later today. Given dose of steroids here in the emergency room and advised to use Benadryl and Pepcid. Advised return here to emergency room if any symptoms increase or worsen or for any other concerns. Disposition Clinical Impression: Medication reaction Disposition: HOME SELF-CARE Condition: Good Instructions: Urticaria (ED) Additional Instructions: Please follow-up with your neurologist tomorrow. Please use Benadryl one to 2 tabs every 6 hours and Pepcid 1 tab twice a day for her symptoms. Please return if symptoms increase or worsen or for any other concerns. Referrals: Zena Villavicencio MD [Primary Care Provider] - 1-2 days Time of Disposition: 14:27
== END 2016-11-16 14:40 | disposition home or self-care (01) ==
LOC: EC 13:17
DX: R22.0 Localized swelling, mass and lump, head (principal); T42.1X5A Adverse effect of iminostilbenes, initial encounter; G40.909 Epilepsy, unspecified, not intractable, without status epilepticus; I10 Essential (primary) hypertension; F31.9 Bipolar disorder, unspecified; F41.9 Anxiety disorder, unspecified; Z79.899 Other long term (current) drug therapy; Z88.6 Allergy status to analgesic agent; Z88.8 Allergy status to other drugs, medicaments and biological substances
CPT/HCPCS: 99283; J8540

== ENCOUNTER 2016-12-15 13:28 | Emergency (ER) | payer OTHER ==
[2016-12-15 13:47] VITALS: RESP 18
--- NOTE | 2016-12-15 15:11 | ED ---
General Adult HPI - General Chief complaint: Eye Problems Stated complaint: eye pain Time Seen by Provider: 12/15/16 14:28 Source: patient, family, RN notes reviewed, old records reviewed Mode of arrival: ambulatory Limitations: no limitations - History of Present Illness Initial comments: Chief complaint history of present illness a 36-year-old male here because of recurrent swelling to the right eye and some he wakes up for the past several days. Recent history finds patient had a seizure approximately 40 days ago falling forward. CAT scans and examination at that time of the brain and orbits were normal. The patient return emergency room several weeks later with swelling to the right side of the eye was determined that he may have a be having angioedema associated with his Trileptal. So that medication was stopped. His neurologist is take him off all antiepileptics at this time and put him on sleeping pills which she states he's not had a seizure since starting that regimen. The patient was also seen by an gravity meter operator who stated he had possible right eye infection and put him on some tobramycin ophthalmic drops that worked well for the first 3 days and then the swelling to the eye started again. At this time the patient does not have discharge noted in the in the beginning there is minimal no swelling of the lid now. He has mild anisocoria right eye pupil slightly smaller than the left but no photophobia with light shined in the opposite eye. Significant complaint of decreased visual acuity. States he'll count fingers with only slight blurriness - Related Data Home Medications Medication Instructions Recorded Confirmed ALPRAZolam [Xanax] 1 mg PO TID 11/04/16 12/15/16 Lisinopril 20 mg PO DAILY 11/04/16 12/15/16 ARIPiprazole [Abilify] 15 mg PO HS 12/15/16 12/15/16 HYDROcodone/APAP 7.5-325MG [[place] 1 tab PO Q4H PRN 12/15/16 12/15/16 7.5-325] Tobramycin/Dexamethasone [Tobradex 1 drop RIGHT EYE QID 12/15/16 12/15/16 Ophth Susp] Previous Rx's Medication Instructions Recorded Hydrocodone/Acetaminophen [[place] 1 each PO Q6HR PRN #20 tab 12/15/16 5-325] Allergies Allergy/AdvReac Type Severity Reaction Status Date / Time levetiracetam [From Keppra] Allergy Unknown Verified 12/15/16 14:16 clonazepam AdvReac Confusion Verified 12/15/16 14:16 lamotrigine [From Lamictal] AdvReac Confusion Verified 12/15/16 14:16 oxcarbazepine AdvReac Swelling Verified 12/15/16 14:16 [From Trileptal] tramadol AdvReac SEZIURES Verified 12/15/16 14:16 Review of Systems ROS Statement: Those systems with pertinent positive or pertinent negative responses have been documented in the HPI. Review of systems occasional right sided headache. Headache and pain behind the right eye. Patient is seeing an gravity meter operator. He'll call the office today or tomorrow for recheck. He states since she was placed on sleep medication and [place] for his chronic back pain exact been doing better. When he wakes up in the morning the right eye is swollen shut but not with crusty discharge. No foreign body sensation. Denies any change in visual acuity only slightly blurred vision. Able to count fingers at a distance. Pulses are reviewed. Past medical problems significant for anxiety, bipolar disorder as well as hypertension and seizure disorder chronic back pain. He has ALLERGIES to clonazepam, clonazepam, oxcarbazepine, tramadol, lamotrigine. ROS Other: All systems not noted in ROS Statement are negative. Past Medical History Past Medical History: Hypertension, Seizure Disorder Additional Past Medical History / Comment(s): chronic back pain, torn mcl History of Any Multi-Drug Resistant Organisms: None Reported Past Surgical History: Orthopedic Surgery Additional Past Surgical History / Comment(s): epidural shots in back, acl repair, torn mcl right knee, Past Psychological History: ADD/ADHD, Anxiety, Bipolar, Depression Smoking Status: Never smoker Past Alcohol Use History: None Reported Past Drug Use History: Marijuana General Exam - General Exam Comments Initial Comments: General: The patient is awake and alert, in no distress, and does not appear acutely ill. Complains of a right eye lid swelling he stay for the past several days gone now. Not crusted shut. She swollen lid right side only. Vital signs temperature 98.4 pulse 76 respiratory rate 18 pulse ox 98% room air blood pressure 163/105 Eye: Pupil slightly smaller than left pupil. Both reactive. Mild photophobia with right pupil examination but not with left pupil examination. Finger counting at a distance normal. He describes a slightly blurry. No pain to the bones around the eye. Eye lids not swollen., round and reactive to light, extra- ocular movements are intact; there is normal conjunctiva bilaterally. No signs of icterus. Ears, nose, mouth and throat: There are moist mucous membranes Neck: The neck is supple, Cardiovascular: There is a regular rate and rhythm. No murmur, rub or gallop is appreciated. Respiratory: Lungs are clear to auscultation, respirations are non-labored, breath sounds are equal. No wheezes, stridor, rales, or rhonchi. Neurological: No neuro deficits Psychiatric: Cooperative, appropriate mood & affect, normal judgment. History of bipolar disorder Limitations: no limitations Course Vital Signs 12/15/16 13:42 Temperature 98.4 F Pulse Rate 76 Respiratory 18 Rate Blood Pressure 163/105 O2 Sat by Pulse 98 Oximetry Medical Decision Making - Medical Decision Making Decision-making. The patient will stop with the eyedrops at this time that would been used for an eye infection as he has no evidence of any problem at this time. He does have an appointment and will follow up with his eye doctor day after tomorrow. He is to call to get in sooner. He is to continue his home medications as prescribed by his neurologist. He has been taking [place] for back pain as well. His has been distributing the medications. Disposition Clinical Impression: Angioedema Disposition: HOME SELF-CARE Condition: Fair Instructions: Angioedema (ED) Additional Instructions: Take medications as directed follow up with your family doctor, neurologist and gravity meter operator Prescriptions: Hydrocodone/Acetaminophen [[place] 5-325] 1 each PO Q6HR PRN #20 tab PRN Reason: Pain Referrals: Zena Villavicencio MD [Primary Care Provider] - 1-2 days Time of Disposition: 15:13
[2016-12-15 15:26] VITALS: BP 155/92; PULSE 87; TEMP 98.5
== END 2016-12-15 15:24 | disposition home or self-care (01) ==
LOC: EC 13:28
DX: T78.3XXA Angioneurotic edema, initial encounter (principal); I10 Essential (primary) hypertension; F90.9 Attention-deficit hyperactivity disorder, unspecified type; F31.9 Bipolar disorder, unspecified; F41.9 Anxiety disorder, unspecified; Z79.899 Other long term (current) drug therapy; Z88.6 Allergy status to analgesic agent; Z88.8 Allergy status to other drugs, medicaments and biological substances
CPT/HCPCS: 99283

== ENCOUNTER 2017-04-16 17:42 | Emergency (ER) | payer SELFPAY ==
[2017-04-16] MEDS ORDERED: RX INFO: IV CONTRAST WAS GIVEN 1 EACH MISC MISCELLANE PRN (18:12)
[2017-04-16] MEDS ORDERED: MORPHINE SULFATE 10 MG/ML SYRINGE IVP STA (18:13)
--- NOTE | 2017-04-16 18:26 | ED ---
General Adult HPI - General Chief complaint: Weakness Stated complaint: Facial drooping Time Seen by Provider: 04/16/17 17:58 Source: patient Mode of arrival: wheelchair Limitations: no limitations - History of Present Illness Initial comments: This is a 37-year-old male with a history of chronic insomnia, sleep apnea, and recurrent seizures who presents emergency department for not being able to sleep for 3 days. The patient states that he has run out of his Xanax because he doesn't have any insurance she is moaning able to get his refill. He typically takes Xanax 1 mg 3 times a day. He states he also has noticed that his right eye is been drooping more than normal. He denies any visual changes however does admit to some pain in the right eye as well. It appears the patient was seen for this back in December. He has been seen by a keg washer as well. It appears that it was thought that the eye lag was due to angioedema from his seizure medications. He has been taken off of these and currently states that he is not taking any seizure medications. Patient is concerned because whenever he has lack of sleep he has seizures taking the emergency department. He denies any shortness of breath. He does state that he occasionally gets chest pain. No fevers or chills. No other complaints. - Related Data Home Medications Medication Instructions Recorded Confirmed ALPRAZolam [Xanax] 0.5 - 1 mg PO TID PRN 11/04/16 04/16/17 Lisinopril 20 mg PO DAILY 11/04/16 04/16/17 Hydrocodone/Acetaminophen [[place] 1 tab PO Q6HR PRN 04/16/17 04/16/17 5-325] Previous Rx's Medication Instructions Recorded ALPRAZolam [Xanax] 1 mg PO Q8HR PRN #12 tab 04/16/17 Allergies Allergy/AdvReac Type Severity Reaction Status Date / Time levetiracetam [From Keppra] Allergy Unknown Verified 04/16/17 18:53 clonazepam AdvReac Confusion Verified 04/16/17 18:53 lamotrigine [From Lamictal] AdvReac Confusion Verified 04/16/17 18:53 oxcarbazepine AdvReac Swelling Verified 04/16/17 18:53 [From Trileptal] tramadol AdvReac SEZIURES Verified 04/16/17 18:53 Review of Systems ROS Statement: Those systems with pertinent positive or pertinent negative responses have been documented in the HPI. ROS Other: All systems not noted in ROS Statement are negative. Past Medical History Past Medical History: Hypertension, Seizure Disorder Additional Past Medical History / Comment(s): chronic back pain, torn mcl History of Any Multi-Drug Resistant Organisms: None Reported Past Surgical History: Orthopedic Surgery Additional Past Surgical History / Comment(s): epidural shots in back, acl repair, torn mcl right knee, Past Psychological History: ADD/ADHD, Anxiety, Bipolar, Depression Smoking Status: Never smoker Past Alcohol Use History: None Reported Past Drug Use History: Marijuana General Exam - General Exam Comments Initial Comments: Constitutional: Awake alert Appears comfortable Head: Normocephalic atraumatic Eyes: no conjunctival injection No scleral icterus EOMI, bilateral pupils are reactive however the right pupil is approximately 1-2 mm wide the left pupil is 3-4 mm. It appears that this is unchanged from December. He also has some right sided ptosis. No anhydrosis seen. Neck: No JVD Supple, no bruits Heart: Regular rate rhythm normal S1-S2 no murmurs Lungs: Clear to auscultation bilaterally No wheezing No rales Abdomen: Soft nondistended nontender Extremities: Non edematous DP pulses intact Radial pulses intact Neuro: A&Ox3, crowner 2 through 12 are grossly intact, 5 out of 5 strength in upper and lower extremities bilaterally No focal neurologic deficits Psych: Appropriate mood and affect Limitations: no limitations Course Vital Signs 04/16/17 04/16/17 17:47 18:38 Temperature 98.2 F Pulse Rate 74 79 Respiratory 20 18 Rate Blood Pressure 154/98 134/87 O2 Sat by Pulse 98 99 Oximetry EKG Findings - EKG Comments: EKG Findings:: EKG showing normal sinus rhythm with a rate of 75. There are some T-wave inversions in V3 through V5. No ST segment changes. QTC is 410. Other intervals normal. No ectopy. Medical Decision Making - Medical Decision Making This is a 37-year-old male presents emergency department for insomnia and right thigh pain and droopiness. It appears that the patient has been having these symptoms for multiple months. I was concerned for a corner syndrome given the anisocoria and the ptosis. CTA of the head and neck was unremarkable for cervical dissection. No evidence for Pancoast tumor on chest portion. The patient is requesting Xanax for home which she used to take for insomnia. He does not have insurance at this time. I gave him 1 dose here and will give him 12 for home. He is to follow-up with his sleep specialist area and also told to follow-up with his neurologist given his I. All questions were answered. - Lab Data Result diagrams: 04/16/17 18:29 04/16/17 18:29 Lab Results 04/16/17 04/16/17 Range/Units 18:29 18:29 WBC 13.2 H (3.8-10.6) k/uL RBC 5.84 (4.30-5.90) m/uL Hgb 17.4 (13.0-17.5) gm/dL Hct 52.7 (39.0-53.0) % MCV 90.1 (80.0-100.0) fL MCH 29.8 (25.0-35.0) pg MCHC 33.1 (31.0-37.0) g/dL RDW 14.7 (11.5-15.5) % Plt Count 236 (150-450) k/uL Neutrophils % 64 % Lymphocytes % 22 % Monocytes % 9 % Eosinophils % 4 % Basophils % 1 % Neutrophils # 8.4 H (1.3-7.7) k/uL Lymphocytes # 2.9 (1.0-4.8) k/uL Monocytes # 1.1 H (0-1.0) k/uL Eosinophils # 0.5 (0-0.7) k/uL Basophils # 0.1 (0-0.2) k/uL Sodium 142 (137-145) mmol/L Potassium 4.0 (3.5-5.1) mmol/L Chloride 107 (98-107) mmol/L Carbon Dioxide 21 L (22-30) mmol/L Anion Gap 14 mmol/L BUN 16 (9-20) mg/dL Creatinine 0.90 (0.66-1.25) mg/dL Est GFR (MDRD) Af Amer >60 (>60 ml/min/1.73 sqM) Est GFR (MDRD) Non-Af >60 (>60 ml/min/1.73 sqM) Glucose 92 (74-99) mg/dL Calcium 10.3 H (8.4-10.2) mg/dL Total Bilirubin 1.2 (0.2-1.3) mg/dL AST 31 (17-59) U/L ALT 61 (21-72) U/L Alkaline Phosphatase 56 (38-126) U/L Total Protein 8.2 (6.3-8.2) g/dL Albumin 5.0 (3.5-5.0) g/dL Disposition Clinical Impression: Ptosis Disposition: HOME SELF-CARE Condition: Stable Instructions: Insomnia (ED) Prescriptions: ALPRAZolam [Xanax] 1 mg PO Q8HR PRN #12 tab PRN Reason: insomnia Referrals: Zena Villavicencio MD [Primary Care Provider] - 1-2 days
[2017-04-16 18:43] LABS: Basophils # (A) 0.1 k/uL (0-0.2); Basophils % (A) 1 %; CHCM 34.5; Eosinophils # (A) 0.5 k/uL (0-0.7); Eosinophils % (A) 4 %; HCT 52.7 % (39.0-53.0); HDW 2.35; HGB 17.4 gm/dL (13.0-17.5); Luc # (Auto) 0.21; Luc % (Auto) 2; Lymphocytes # (A) 2.9 k/uL (1.0-4.8); Lymphocytes % (A) 22 %; MCH 29.8 pg (25.0-35.0); MCHC 33.1 g/dL (31.0-37.0); MCV 90.1 fL (80.0-100.0); Mean Platelet Volume 7.8; Monocytes # (A) 1.1 k/uL (0-1.0); Monocytes % (A) 9 %; Neutrophils # (A) 8.4 k/uL (1.3-7.7); Neutrophils % (A) 64 %; RBC 5.84 m/uL (4.30-5.90); RDW 14.7 % (11.5-15.5); WBC 13.2 k/uL (3.8-10.6); WBC (Perox) 13.34
[2017-04-16 18:56] VITALS: RESP 18
[2017-04-16 18:56] LABS: ALT 61 U/L (21-72); AST 31 U/L (17-59); Alkaline Phosphatase 56 U/L (38-126); Anion Gap 14 mmol/L; Blood Urea Nitrogen 16 mg/dL (9-20); Calcium 10.3 mg/dL (8.4-10.2); Carbon Dioxide 21 mmol/L (22-30); Chloride 107 mmol/L (98-107); Glucose 92 mg/dL (74-99); Non-African American GFR(MDRD) >60 (>60 ml/min/1.73 sqM); Sodium 142 mmol/L (137-145); Total Bilirubin 1.2 mg/dL (0.2-1.3); Total Protein 8.2 g/dL (6.3-8.2)
--- NOTE | 2017-04-16 19:55 | CT ---
EXAMINATION TYPE: CT angio head neck DATE OF EXAM: 04/16/2017 HISTORY: Right eye droop and vision changes COMPARISON: NONE CT DLP: 1322.8 mGycm. Automated Exposure Control for Dose Reduction was Utilized. TECHNIQUE: CTA scan of the neck is performed without and with IV Contrast, patient injected with 65 mL of Omnipaque 350, axial images are obtained, coronal and sagittal reformatted images are reviewed. Three-D reconstructed images are created on an independent workstation and reviewed. FINDINGS: The noncontrast images show normal ventricles and sulci. There is no midline shift. There is no sign of intracranial hemorrhage. There is normal branching pattern of the great vessels on the aortic arch. There is bilateral arteria l flow in the vertebral arteries which have normal size. There is patency of the vertebrobasilar valerie ry system. The carotid arteries are symmetric. There is no evidence of stenosis. Carotid arteries are widely pat ent. There is no evidence of dissection. There is arterial flow in the anterior middle and posterior cerebral arteries. Intracranial internal carotid arteries are symmetric. There is no sign of aneurysm or neovascularity. There is normal contr ast opacification of the venous sinuses. CONCLUSION: Normal CT angiogram of the neck. Normal CT angiogram of the brain.
[2017-04-16] MEDS ORDERED: ALPRAZolam 0.5 MG TAB PO STA (20:23)
[2017-04-16 21:00] VITALS: BP 136/83; PULSE 83; TEMP 98.3
== END 2017-04-16 20:58 | disposition home or self-care (01) ==
LOC: EC 17:42
DX: H02.401 Unspecified ptosis of right eyelid (principal); I10 Essential (primary) hypertension; R07.9 Chest pain, unspecified; G47.00 Insomnia, unspecified; Z79.899 Other long term (current) drug therapy
CPT/HCPCS: 36415; 93005; 80053; 85025; 70496; 70498; 99285; 96374; Q9967; J2270

== ENCOUNTER 2017-06-07 18:44 | Emergency (ER) | payer OTHER ==
[2017-06-07 18:50] VITALS: RESP 18
[2017-06-07] MEDS ORDERED: HYDROcodone/APAP 5-325MG 1 EACH TAB PO STA (19:43)
[2017-06-07] MEDS ORDERED: ORPHENADRINE 30 MG/ML 2 ML VIAL IM STA (19:43)
[2017-06-07] MEDS ORDERED: KETOROLAC 60 MG/2 ML VIAL IM STA (19:43)
--- NOTE | 2017-06-07 19:45 | ED ---
Back Pain HPI - General Chief Complaint: Back Pain/Injury Stated Complaint: back pain Time Seen by Provider: 06/07/17 19:35 Source: patient, RN notes reviewed Limitations: no limitations - History of Present Illness Initial Comments: 37-year-old male presents emergency Department with chief complaint of back pain. Patient states he's had some issues of chronic back pain but states that last 2 days and felt some increasing back pain states today he sat down to eat dinner and states that the pain worsened. He states all with any movement and standing he is having worsening pain of his lower extremity on the right. Patient states his pain that shoots ultrasound was heel. Patient denies any bowel incontinence or bladder retention. Denies any abdominal pain. He states that he normally has come emergency department for pain medication. Does not take pain medication refill basis. Did used to see Dr. Singh in which she received injections states he was not helping. Patient denies any new injury no trauma. - Related Data Home Medications Medication Instructions Recorded Confirmed ALPRAZolam [Xanax] 1 mg PO TID PRN 06/07/17 06/07/17 Ibuprofen [Motrin] 200 - 400 mg PO Q6HR PRN 06/07/17 06/07/17 Previous Rx's Medication Instructions Recorded Cyclobenzaprine [Flexeril] 10 mg PO TID PRN #15 tab 06/07/17 Hydrocodone/Acetaminophen [[place] 1 tab PO Q6HR PRN #20 tab 06/07/17 5-325] predniSONE 50 mg PO DAILY #5 tab 06/07/17 Allergies Allergy/AdvReac Type Severity Reaction Status Date / Time levetiracetam [From Keppra] Allergy Unknown Verified 06/07/17 19:39 clonazepam AdvReac Confusion Verified 06/07/17 19:39 lamotrigine [From Lamictal] AdvReac Confusion Verified 06/07/17 19:39 oxcarbazepine AdvReac Swelling Verified 06/07/17 19:39 [From Trileptal] tramadol AdvReac SEZIURES Verified 06/07/17 19:39 Review of Systems ROS Statement: Those systems with pertinent positive or pertinent negative responses have been documented in the HPI. ROS Other: All systems not noted in ROS Statement are negative. Past Medical History Past Medical History: Hypertension, Seizure Disorder Additional Past Medical History / Comment(s): chronic back pain, torn mcl History of Any Multi-Drug Resistant Organisms: None Reported Past Surgical History: Orthopedic Surgery Additional Past Surgical History / Comment(s): epidural shots in back, acl repair, torn mcl right knee, Past Psychological History: ADD/ADHD, Anxiety, Bipolar, Depression Smoking Status: Never smoker Past Alcohol Use History: None Reported Past Drug Use History: None Reported General Exam Limitations: no limitations General appearance: alert, in no apparent distress Head exam: Present: atraumatic, normocephalic, normal inspection Respiratory exam: Present: normal lung sounds bilaterally. Absent: respiratory distress, wheezes, rales, rhonchi, stridor Cardiovascular Exam: Present: regular rate, normal rhythm, normal heart sounds. Absent: systolic murmur, diastolic murmur, rubs, gallop, clicks GI/Abdominal exam: Present: soft, normal bowel sounds. Absent: distended, tenderness, guarding, rebound, rigid Extremities exam: Present: normal inspection, full ROM, normal capillary refill , other (Lower extremity strength equal bilaterally neurovascular intact pedal pulses equal). Absent: tenderness, pedal edema, joint swelling, calf tenderness Back exam: Present: full ROM, tenderness (Monocytes the right low back), paraspinal tenderness, other (Pain with right straight leg raise). Absent: vertebral tenderness Neurological exam: Present: alert, oriented X3, CN II-XII intact, reflexes normal. Absent: motor sensory deficit Course Vital Signs 06/07/17 18:45 Temperature 98.3 F Pulse Rate 71 Respiratory 18 Rate Blood Pressure 174/93 O2 Sat by Pulse 98 Oximetry Medical Decision Making - Medical Decision Making 37 show male present emergency from for low back pain. Patient has lumbar strain with lumbar radiculopathy. Patient we given injections of Norflex and Toradol here. Patient discharged on prednisone, [place] and Flexeril. Patient advised to apply heat and ice 20 said time do daily stretching and follow-up for recheck. Return parameters were discussed. Disposition Clinical Impression: Lumbar radiculopathy Disposition: HOME SELF-CARE Condition: Stable Instructions: Acute Low Back Pain (ED) Additional Instructions: Please return to the Emergency Department if symptoms worsen or any other concerns. Prescriptions: Cyclobenzaprine [Flexeril] 10 mg PO TID PRN #15 tab PRN Reason: Muscle Spasm Hydrocodone/Acetaminophen [[place] 5-325] 1 tab PO Q6HR PRN #20 tab PRN Reason: Pain predniSONE 50 mg PO DAILY #5 tab Referrals: Zena Villavicencio MD [Primary Care Provider] - 1-2 days Time of Disposition: 19:45
[2017-06-07 20:07] VITALS: BP 164/84; PULSE 58; TEMP 97.1
== END 2017-06-07 20:06 | disposition home or self-care (01) ==
LOC: EC 18:44
DX: M54.16 Radiculopathy, lumbar region (principal); Z88.5 Allergy status to narcotic agent; Z88.8 Allergy status to other drugs, medicaments and biological substances
CPT/HCPCS: 99283; 96372 ×2; J2360; J1885

== ENCOUNTER 2017-07-14 09:48 | Emergency (ER) | payer OTHER ==
[2017-07-14 09:57] VITALS: BP 161/97; PULSE 89; RESP 18; TEMP 97.4
--- NOTE | 2017-07-14 10:25 | ED ---
Back Pain HPI - General Chief Complaint: Back Pain/Injury Stated Complaint: Can't sleep Time Seen by Provider: 07/14/17 10:13 Source: patient, RN notes reviewed Mode of arrival: ambulatory Limitations: no limitations - History of Present Illness Initial Comments: This a 37-year-old male presents emergency Department with multiple complaints. Patient went of back pain which is more chronic in nature but has been exacerbated by shoveling snow. Patient states his low back primarily to the right radius on his right leg. Denies any bowel bladder and comments or retention. Denies any saddle anesthesias or lower shunted paresthesias. Patient has no abdominal pain denies any nausea vomiting diarrhea constipation. Patient also states that he ran out of his Xanax which last prescription was in May. Patient states that he's had seizures in the past. Patient states that he can't sleep because he hasn't has medications. - Related Data Home Medications Medication Instructions Recorded Confirmed Ibuprofen [Motrin] 200 - 400 mg PO Q6HR PRN 06/07/17 07/14/17 Previous Rx's Medication Instructions Recorded Cyclobenzaprine [Flexeril] 10 mg PO TID PRN #15 tab 06/07/17 predniSONE 50 mg PO DAILY #5 tab 06/07/17 ALPRAZolam [Xanax] 1 mg PO TID PRN #15 tablet 07/14/17 Hydrocodone/Acetaminophen [[place] 1 tab PO Q6HR PRN #20 tab 07/14/17 5-325] Allergies Allergy/AdvReac Type Severity Reaction Status Date / Time levetiracetam [From Keppra] Allergy Unknown Verified 07/14/17 09:54 clonazepam AdvReac Confusion Verified 07/14/17 09:54 lamotrigine [From Lamictal] AdvReac Confusion Verified 07/14/17 09:54 oxcarbazepine AdvReac Swelling Verified 07/14/17 09:54 [From Trileptal] tramadol AdvReac SEZIURES Verified 07/14/17 09:54 Review of Systems ROS Statement: Those systems with pertinent positive or pertinent negative responses have been documented in the HPI. ROS Other: All systems not noted in ROS Statement are negative. Past Medical History Past Medical History: Hypertension, Seizure Disorder Additional Past Medical History / Comment(s): chronic back pain, torn mcl History of Any Multi-Drug Resistant Organisms: None Reported Past Surgical History: Orthopedic Surgery Additional Past Surgical History / Comment(s): epidural shots in back, acl repair, torn mcl right knee, Past Psychological History: ADD/ADHD, Anxiety, Bipolar, Depression Smoking Status: Never smoker Past Alcohol Use History: None Reported Past Drug Use History: None Reported General Exam Limitations: no limitations General appearance: alert, in no apparent distress Head exam: Present: atraumatic, normocephalic, normal inspection Neck exam: Present: normal inspection, full ROM. Absent: tenderness, meningismus, lymphadenopathy Respiratory exam: Present: normal lung sounds bilaterally. Absent: respiratory distress, wheezes, rales, rhonchi, stridor Cardiovascular Exam: Present: regular rate, normal rhythm, normal heart sounds. Absent: systolic murmur, diastolic murmur, rubs, gallop, clicks GI/Abdominal exam: Present: soft, normal bowel sounds. Absent: distended, tenderness, guarding, rebound, rigid Extremities exam: Present: normal inspection, full ROM, normal capillary refill , other (Lower extremity strength equal bilaterally, neurovascular intact). Absent: tenderness, pedal edema, joint swelling, calf tenderness Back exam: Present: full ROM, tenderness (Tenderness of right lumbar region), paraspinal tenderness. Absent: CVA tenderness (R), CVA tenderness (L), vertebral tenderness Neurological exam: Present: reflexes normal. Absent: motor sensory deficit Course Vital Signs 07/14/17 09:55 Temperature 97.4 F L Pulse Rate 89 Respiratory 18 Rate Blood Pressure 161/97 O2 Sat by Pulse 98 Oximetry Medical Decision Making - Medical Decision Making 37-year-old male present emergency from for low back pain. Patient we treated for chronic back pain. Patient denies any he see his primary care physician for further pain medication. Patient was given a short prescription of his benzodiazepine and he sat risk for withdrawal as he is chronically taking benzodiazepine. Patient understands that he needs to follow up for further medications. Patient's exam is benign he has no red flag symptoms. Disposition Clinical Impression: Lumbar back pain, Benzodiazepine dependence, Medication refill Disposition: HOME SELF-CARE Condition: Stable Instructions: Chronic Back Pain (ED), Acute Low Back Pain (ED) Additional Instructions: Please return to the Emergency Department if symptoms worsen or any other concerns. Prescriptions: ALPRAZolam [Xanax] 1 mg PO TID PRN #15 tablet PRN Reason: Anxiety Hydrocodone/Acetaminophen [[place] 5-325] 1 tab PO Q6HR PRN #20 tab PRN Reason: Pain Referrals: Zena Villavicencio MD [Primary Care Provider] - 1-2 days Time of Disposition: 10:24
== END 2017-07-14 10:39 | disposition home or self-care (01) ==
LOC: EC 09:48
DX: M54.5 Low back pain (principal); F13.20 Sedative, hypnotic or anxiolytic dependence, uncomplicated; Z76.0 Encounter for issue of repeat prescription; G89.29 Other chronic pain; M79.604 Pain in right leg; Z88.5 Allergy status to narcotic agent; Z88.8 Allergy status to other drugs, medicaments and biological substances; Z98.890 Other specified postprocedural states
CPT/HCPCS: 99283

== ENCOUNTER 2017-08-12 16:41 | Emergency (ER) | payer OTHER ==
[2017-08-12 17:15] VITALS: BP 164/118; PULSE 80; RESP 18; TEMP 97.5
--- NOTE | 2017-08-12 17:34 | ED ---
Recheck HPI - General Chief Complaint: Recheck/Abnormal Lab/Rx Stated Complaint: Med refill Time Seen by Provider: 08/12/17 17:12 Source: patient, RN notes reviewed Mode of arrival: ambulatory Limitations: no limitations - History of Present Illness Initial Comments: This is a 37-year-old male who presents to the emergency department with request for medication refills. Patient states that he takes [place] for pain and Xanax for anxiety. His last prescriptions he received were prescribed in the emergency department last month. Patient states that he has not yet followed up this primary care provider. He states that his insurance is not active and cannot afford to pay a co-pay to see his primary care physician. He states that he mostly just needs his medication for anxiety as he has had withdrawals in the past. Denies fever, chills, chest pain, shortness of breath , abdominal pain, nausea or vomiting, constipation or diarrhea, dysuria or hematuria, numbness or tingling, headache or vision changes. - Related Data Home Medications Medication Instructions Recorded Confirmed Lisinopril Unknown Dose 1 tab PO DAILY 08/12/17 08/12/17 Previous Rx's Medication Instructions Recorded ALPRAZolam [Xanax] 1 mg PO TID PRN #15 tablet 07/14/17 Hydrocodone/Acetaminophen [[place] 1 tab PO Q6HR PRN #20 tab 07/14/17 5-325] ALPRAZolam [Xanax] 1 mg PO DAILY PRN #5 tab 08/12/17 Allergies Allergy/AdvReac Type Severity Reaction Status Date / Time levetiracetam [From Keppra] Allergy Unknown Verified 08/12/17 17:25 clonazepam AdvReac Confusion Verified 08/12/17 17:25 lamotrigine [From Lamictal] AdvReac Confusion Verified 08/12/17 17:25 oxcarbazepine AdvReac Swelling Verified 08/12/17 17:25 [From Trileptal] tramadol AdvReac SEZIURES Verified 08/12/17 17:25 Review of Systems ROS Statement: Those systems with pertinent positive or pertinent negative responses have been documented in the HPI. ROS Other: All systems not noted in ROS Statement are negative. Past Medical History Past Medical History: Hypertension, Seizure Disorder Additional Past Medical History / Comment(s): chronic back pain, torn mcl History of Any Multi-Drug Resistant Organisms: None Reported Past Surgical History: Orthopedic Surgery Additional Past Surgical History / Comment(s): epidural shots in back, acl repair, torn mcl right knee, Past Psychological History: ADD/ADHD, Anxiety, Bipolar, Depression Smoking Status: Never smoker Past Alcohol Use History: None Reported Past Drug Use History: None Reported General Exam - General Exam Comments Initial Comments: General: Awake and alert, well-developed; in no apparent distress. HEENT: Head atraumatic, normocephalic. Pupils are equal, round and reactive to light. Extraocular movements intact. Oropharynx moist without erythema or exudate. Neck: Supple. Normal ROM. Cardiovascular: Regular rate and rhythm. No murmurs, rubs or gallops. Chest symmetrical. Respiratory: Lungs clear to auscultation bilaterally. No wheezes, rales or rhonchi. Normal respiratory effort with no use of accessory muscles. Musculoskeletal: Normal ROM, no tenderness bilateral upper and lower extremities. Ambulating normally. Skin: [place], warm and dry without rashes or lesions. Neurological: Alert and oriented x3. CN II-XII grossly intact. Speech is fluent and answers are appropriate. No focal neuro deficits. Psychiatric: Normal mood and affect. No overt signs of depression or anxiety noted. Limitations: no limitations Course Vital Signs 08/12/17 17:12 Temperature 97.5 F L Pulse Rate 80 Respiratory 18 Rate Blood Pressure 164/118 O2 Sat by Pulse 97 Oximetry Medical Decision Making - Medical Decision Making This is a 37-year-old male who presents to the emergency department with request for medication refill. Patient has yet to follow-up with his primary care provider since last receiving refills for [place] and Xanax here in the emergency department. I explained to patient that we cannot be prescribing controlled substances each month and that he must follow-up with his primary care provider. Patient will be given a prescription for 5 Xanax tablets. He is in agreement and voices understanding. Patient will be discharged home. All questions answered. Disposition Clinical Impression: Encounter for medication refill Disposition: HOME SELF-CARE Condition: Good Instructions: Alprazolam (By mouth) Additional Instructions: Please take medications as prescribed. Please follow up with primary care provider within 1-2 days. Return to emergency department if symptoms should worsen or any concerns arise. Prescriptions: ALPRAZolam [Xanax] 1 mg PO DAILY PRN #5 tab PRN Reason: Anxiety Referrals: Zena Villavicencio MD [Primary Care Provider] - 1-2 days Time of Disposition: 17:32
== END 2017-08-12 17:43 | disposition home or self-care (01) ==
LOC: EC 16:41
DX: Z76.0 Encounter for issue of repeat prescription (principal); I10 Essential (primary) hypertension; Z79.899 Other long term (current) drug therapy; Z88.6 Allergy status to analgesic agent; Z88.8 Allergy status to other drugs, medicaments and biological substances
CPT/HCPCS: 99281

== ENCOUNTER 2017-09-04 12:15 | Emergency (ER) | payer OTHER ==
[2017-09-04 12:27] VITALS: BP 167/109; PULSE 91; RESP 20; TEMP 98.1
--- NOTE | 2017-09-04 12:55 | ED ---
General Adult HPI - General Chief complaint: Extremity Injury, Lower Stated complaint: Knee pain Time Seen by Provider: 09/04/17 12:35 Source: patient, RN notes reviewed Mode of arrival: ambulatory Limitations: no limitations - History of Present Illness Initial comments: Patient 37-year-old male presenting to the emergency room today with chief complaint of increased pain to the right knee. He does admit that 3 years ago he for part of his MCL. He states he follow-up with Dr. Valdivia at the time. Patient states she's had increased pain today. This worse with certain movements. Patient denies any injury or trauma. Patient denies any other complaints. Patient denies any recent fever, chills, shortness of breath, chest pain, back pain, abdominal pain, nausea or vomiting, numbness or tingling, headaches or visual changes, or any other complaints. - Related Data Home Medications Medication Instructions Recorded Confirmed Lisinopril Unknown Dose 1 tab PO DAILY 08/12/17 08/12/17 Previous Rx's Medication Instructions Recorded ALPRAZolam [Xanax] 1 mg PO TID PRN #15 tablet 07/14/17 Hydrocodone/Acetaminophen [[place] 1 tab PO Q6HR PRN #20 tab 07/14/17 5-325] ALPRAZolam [Xanax] 1 mg PO DAILY PRN #5 tab 08/12/17 Allergies Allergy/AdvReac Type Severity Reaction Status Date / Time levetiracetam [From Keppra] Allergy Unknown Verified 09/04/17 12:24 clonazepam AdvReac Confusion Verified 09/04/17 12:24 lamotrigine [From Lamictal] AdvReac Confusion Verified 09/04/17 12:24 oxcarbazepine AdvReac Swelling Verified 09/04/17 12:24 [From Trileptal] tramadol AdvReac SEZIURES Verified 09/04/17 12:24 Review of Systems ROS Statement: Those systems with pertinent positive or pertinent negative responses have been documented in the HPI. ROS Other: All systems not noted in ROS Statement are negative. Past Medical History Past Medical History: Hypertension, Seizure Disorder Additional Past Medical History / Comment(s): chronic back pain, torn mcl History of Any Multi-Drug Resistant Organisms: None Reported Past Surgical History: Orthopedic Surgery Additional Past Surgical History / Comment(s): epidural shots in back, acl repair, torn mcl right knee, Past Psychological History: ADD/ADHD, Anxiety Smoking Status: Never smoker Past Alcohol Use History: None Reported Past Drug Use History: None Reported General Exam - General Exam Comments Initial Comments: General: The patient is awake and alert, in no distress, and does not appear acutely ill. Neck: The neck is supple, there is no tenderness or JVD. Cardiovascular: There is a regular rate and rhythm. No murmur, rub or gallop is appreciated. Respiratory: Lungs are clear to auscultation, respirations are non-labored, breath sounds are equal. No wheezes, stridor, rales, or rhonchi. Musculoskeletal: Patient has normal appearance of the right knee no obvious deformity. Patient sensations are intact. Strength 5/5. Tender with valgus and varus stress. Neurological: A&O x 3. CN II-XII intact, There are no obvious motor or sensory deficits. Coordination appears grossly intact. Speech is normal. Skin: Skin is warm and dry and no rashes or lesions are noted. Psychiatric: Normal mood and affect. Limitations: no limitations Course Vital Signs 09/04/17 12:24 Temperature 98.1 F Pulse Rate 91 Respiratory 20 Rate Blood Pressure 167/109 O2 Sat by Pulse 96 Oximetry Medical Decision Making - Medical Decision Making Options were discussed patient about the immobilizer. States he has one at home that he can use. He is advised follow-up with orthopedics. Advised ice elevate the affected area use Tylenol and ibuprofen for pain. Advised return for any other concerns. Disposition Clinical Impression: Knee pain Disposition: HOME SELF-CARE Condition: Good Instructions: Knee Pain (ED) Additional Instructions: Please use medication as discussed. Please follow-up with family doctor in the next 2 days of symptoms have not improved. Please return to emergency room if the symptoms increase or worsen or for any other concerns. Referrals: Zena Villavicencio MD [Primary Care Provider] - 1-2 days Kishan Figueredo MD [STAFF PHYSICIAN] - 1-2 days Adam Agrawal DO [Doctor of Osteopathic Medicine] - 1-2 days Time of Disposition: 12:54
== END 2017-09-04 13:01 | disposition home or self-care (01) ==
LOC: EC 12:15
DX: M25.561 Pain in right knee (principal); I10 Essential (primary) hypertension; Z87.828 Personal history of other (healed) physical injury and trauma; Z98.890 Other specified postprocedural states; Z79.899 Other long term (current) drug therapy; Z88.5 Allergy status to narcotic agent; Z88.8 Allergy status to other drugs, medicaments and biological substances
CPT/HCPCS: 99282

== ENCOUNTER 2017-10-12 16:10 | Emergency (ER) | payer BC, OTHER ==
[2017-10-12 16:16] VITALS: BP 181/103; PULSE 85; RESP 18; TEMP 97.8
[2017-10-12] MEDS ORDERED: MORPHINE SULFATE 4 MG/ML SYRINGE IM STA (16:30)
[2017-10-12] MEDS ORDERED: KETOROLAC 30 MG/ML 1 ML VIAL IM STA (16:30)
[2017-10-12] MEDS ORDERED: ORPHENADRINE 30 MG/ML 2 ML VIAL IM STA (16:31)
--- NOTE | 2017-10-12 16:37 | ED ---
Back Pain HPI - General Chief Complaint: Back Pain/Injury Stated Complaint: Back injury Time Seen by Provider: 10/12/17 16:19 Source: patient, RN notes reviewed Limitations: no limitations - History of Present Illness Initial Comments: This is a pleasant 37-year-old male presents emergency department complaining of right lower back pain which radiates into the area of the posterior thigh. Patient denies any problems with bowel movements or urination patient denies any fever or chills patient denies any recent instrumentation, patient denies any direct trauma, patient denies any symptoms of saddle anesthesia. Patient states that he was moving refrigerators a few days ago and injured his back. Patient does suffer from chronic and recurrent low back pain. Patient states that he has had multiple MRIs of his back and previously had steroid injections into his back. Patient recently saw his primary care physician and received 20 [place] tablets. Patient states he is out of those. Patient denies any chest pain or shortness of breath. No abdominal pain. No numbness or tingling. No headaches or his numbness. No recent illness. MD Complaint: back pain, back injury - Related Data Home Medications Medication Instructions Recorded Confirmed Lisinopril Unknown Dose 1 tab PO DAILY 08/12/17 10/12/17 Previous Rx's Medication Instructions Recorded ALPRAZolam [Xanax] 1 mg PO TID PRN #15 tablet 07/14/17 Hydrocodone/Acetaminophen [[place] 1 tab PO Q6HR PRN #20 tab 07/14/17 5-325] Allergies Allergy/AdvReac Type Severity Reaction Status Date / Time levetiracetam [From Keppra] Allergy Unknown Verified 10/12/17 16:16 clonazepam AdvReac Confusion Verified 10/12/17 16:16 lamotrigine [From Lamictal] AdvReac Confusion Verified 10/12/17 16:16 oxcarbazepine AdvReac Swelling Verified 10/12/17 16:16 [From Trileptal] tramadol AdvReac SEZIURES Verified 10/12/17 16:16 Review of Systems ROS Statement: Those systems with pertinent positive or pertinent negative responses have been documented in the HPI. ROS Other: All systems not noted in ROS Statement are negative. Past Medical History Past Medical History: Hypertension, Seizure Disorder Additional Past Medical History / Comment(s): chronic back pain, torn mcl History of Any Multi-Drug Resistant Organisms: None Reported Past Surgical History: Orthopedic Surgery Additional Past Surgical History / Comment(s): epidural shots in back, acl repair, torn mcl right knee, Past Psychological History: ADD/ADHD, Anxiety Smoking Status: Never smoker Past Alcohol Use History: None Reported Past Drug Use History: None Reported General Exam - General Exam Comments Initial Comments: Well-developed, well-nourished 37-year-old male in no distress Limitations: no limitations General appearance: alert, in no apparent distress Head exam: Present: atraumatic, normocephalic, normal inspection Eye exam: Present: normal appearance, EOMI. Absent: scleral icterus, conjunctival injection, periorbital swelling ENT exam: Present: normal exam Neck exam: Present: normal inspection, full ROM Respiratory exam: Present: normal lung sounds bilaterally. Absent: respiratory distress, wheezes, rales, rhonchi, stridor Cardiovascular Exam: Present: regular rate, normal rhythm, normal heart sounds. Absent: systolic murmur, diastolic murmur, rubs, gallop, clicks GI/Abdominal exam: Present: soft. Absent: distended, tenderness, guarding, rebound, rigid Rectal exam: Present: deferred, other (No symptoms of saddle anesthesia) Extremities exam: Present: normal inspection, full ROM Back exam: Present: normal inspection, tenderness (Mild right lumbar paraspinal tenderness), paraspinal tenderness. Absent: full ROM (Slight limitation secondary to pain), CVA tenderness (L), muscle spasm, vertebral tenderness, rash noted Neurological exam: Present: alert, oriented X3, CN II-XII intact, normal gait, other (Straight leg raise is negative bilaterally, negative Clyde's test). Absent: abnormal gait, motor sensory deficit Psychiatric exam: Present: normal affect, normal mood Skin exam: Present: warm, dry, intact, normal color. Absent: rash Course Vital Signs 10/12/17 16:13 Temperature 97.8 F Pulse Rate 85 Respiratory 18 Rate Blood Pressure 181/103 O2 Sat by Pulse 98 Oximetry Medical Decision Making - Medical Decision Making I did recreation counselor the patient on his maps report which did show an and a Rx's score of 770. Patient has received prescriptions from multiple providers, although not many tablets were given. I advised patient follow-up with his primary care physician to seek further pain management. Return and follow-up parameters discussed. Disposition Clinical Impression: Chronic low back pain, Mechanical back pain, Strain of lumbar region Disposition: HOME SELF-CARE Condition: Good Instructions: Chronic Back Pain (ED) Additional Instructions: Return to the ER at once if the symptoms worsen or problems or difficulties arise. Ensure that you follow-up with your primary care physician for further evaluation and pain control. You can continue the Flexeril and anti- inflammatory medication you are currently taking. Is patient prescribed a controlled substance at d/c from ED?: No Referrals: Efraín Bunch MD [Primary Care Provider] - 10/14/17 Time of Disposition: 16:32
== END 2017-10-12 16:56 | disposition home or self-care (01) ==
LOC: EC 16:10
DX: S39.012A Strain of muscle, fascia and tendon of lower back, initial encounter (principal); M54.5 Low back pain; G89.29 Other chronic pain; I10 Essential (primary) hypertension; Z79.899 Other long term (current) drug therapy; Z88.6 Allergy status to analgesic agent; Z88.8 Allergy status to other drugs, medicaments and biological substances; X50.9XXA Other and unspecified overexertion or strenuous movements or postures, initial encounter
CPT/HCPCS: 99283 ×2; 96372 ×4; J2270; J2360; J1885

== ENCOUNTER 2018-05-09 13:25 | Emergency (ER) | payer OTHER ==
[2018-05-09] MEDS ORDERED: ONDANSETRON 4 MG/2 ML VIAL IVP STA (13:40)
[2018-05-09] MEDS ORDERED: SODIUM CHLORIDE 0.9% 1,000 ML IV STA (13:40)
--- NOTE | 2018-05-09 13:46 | ED ---
General Adult HPI - General Chief complaint: Abdominal Pain Stated complaint: Abd.pain Time Seen by Provider: 05/09/18 13:33 Source: patient, RN notes reviewed Mode of arrival: ambulatory Limitations: no limitations - History of Present Illness Initial comments: Patient 38-year-old male presented to the emergency room today with multiple complaints. Patient states that that over the last 2 weeks he has had symptoms of cough congestion. Patient states that since to be somewhat improved but had some headaches feeling foggy at times. He admits that over the last 3 days she' s had some left lower quadrant pain. Does admit that he's symptoms of diarrhea. States that he seen blood in his stool beginning last night. States he had 2 episodes today. States it was a bright color. States mixed in with diarrhea. Patient denies any other complaints or symptoms. Patient denies any recent fever, chills, shortness of breath, chest pain, back pain, vomiting, numbness or tingling, dysuria or hematuria, constipation, headaches or visual changes, or any other complaints. - Related Data Home Medications Medication Instructions Recorded Confirmed ALPRAZolam [Xanax] 1 mg PO BID 05/09/18 05/09/18 Ibuprofen [Motrin Ib] 800 mg PO Q6H PRN 05/09/18 05/09/18 Lisinopril [Zestril] 20 mg PO BID 05/09/18 05/09/18 Allergies Allergy/AdvReac Type Severity Reaction Status Date / Time levetiracetam [From Keppra] Allergy Unknown Verified 05/09/18 13:44 clonazepam AdvReac Confusion Verified 05/09/18 13:44 lamotrigine [From Lamictal] AdvReac Confusion Verified 05/09/18 13:44 oxcarbazepine AdvReac Swelling Verified 05/09/18 13:44 [From Trileptal] tramadol AdvReac SEZIURES Verified 05/09/18 13:44 Review of Systems ROS Statement: Those systems with pertinent positive or pertinent negative responses have been documented in the HPI. ROS Other: All systems not noted in ROS Statement are negative. Past Medical History Past Medical History: Hypertension, Seizure Disorder Additional Past Medical History / Comment(s): chronic back pain, torn mcl History of Any Multi-Drug Resistant Organisms: None Reported Past Surgical History: Orthopedic Surgery Additional Past Surgical History / Comment(s): epidural shots in back, acl repair, torn mcl right knee, Past Psychological History: ADD/ADHD, Anxiety Smoking Status: Never smoker Past Alcohol Use History: None Reported Past Drug Use History: None Reported General Exam - General Exam Comments Initial Comments: General: The patient is awake and alert, in no distress, and does not appear acutely ill. Eye: There is normal conjunctiva bilaterally. No signs of icterus. Ears, nose, mouth and throat: There are moist mucous membranes and no oral lesions. Neck: The neck is supple, there is no tenderness or JVD. Cardiovascular: There is a regular rate and rhythm. No murmur, rub or gallop is appreciated. Respiratory: Lungs are clear to auscultation, respirations are non-labored, breath sounds are equal. No wheezes, stridor, rales, or rhonchi. Gastrointestinal: Admits soft on palpation. Patient does have mild tenderness left lower quadrant. No rebound, guarding or CVA tenderness. Musculoskeletal: Normal ROM, no tenderness. Neurological: A&O x 3. CN II-XII intact, There are no obvious motor or sensory deficits. Coordination appears grossly intact. Speech is normal. Skin: Skin is warm and dry and no rashes or lesions are noted. Psychiatric: Cooperative, appropriate mood & affect, normal judgment. : Normal rectal tone. No external hemorrhoid. No bright red blood per rectum. Limitations: no limitations Course Vital Signs 05/09/18 05/09/18 05/09/18 13:30 14:30 15:00 Temperature 98 F Pulse Rate 84 89 79 Respiratory 18 18 18 Rate Blood Pressure 164/105 139/89 142/87 O2 Sat by Pulse 99 98 98 Oximetry 05/09/18 05/09/18 15:30 16:00 Temperature Pulse Rate 75 89 Respiratory 18 16 Rate Blood Pressure 145/94 159/92 O2 Sat by Pulse 99 98 Oximetry Medical Decision Making - Medical Decision Making Patient's labs been reviewed. Patient's resting comfortably. His fecal occult test was positive. No bright red blood per rectum. Hemoglobin stable. Vitals are stable. Patient did have cough congestion over the last 2 weeks a chest x- ray was obtained which was negative for any sign of pneumonia. He does admit that the symptoms are actually improving. Patient CT of the abdomen and pelvis was reviewed did show a 1 cm lesion to the left kidney. Ultrasound was performed and was unable to visualize this lesion at this time patient is advised to follow-up family physician for further evaluation. He'll also be given GI for rectal bleeding. Advised to return to emergency room symptoms increase or worsen or for any other concerns. - Lab Data Result diagrams: 05/09/18 14:00 05/09/18 14:00 Lab Results 05/09/18 05/09/18 05/09/18 Range/Units 14:00 14:00 14:00 WBC 9.6 (3.8-10.6) k/uL RBC 5.53 (4.30-5.90) m/uL Hgb 17.6 H (13.0-17.5) gm/dL Hct 50.0 (39.0-53.0) % MCV 90.3 (80.0-100.0) fL MCH 31.8 (25.0-35.0) pg MCHC 35.2 (31.0-37.0) g/dL RDW 13.4 (11.5-15.5) % Plt Count 228 (150-450) k/uL Neutrophils % 68 % Lymphocytes % 21 % Monocytes % 7 % Eosinophils % 2 % Basophils % 0 % Neutrophils # 6.5 (1.3-7.7) k/uL Lymphocytes # 2.0 (1.0-4.8) k/uL Monocytes # 0.7 (0-1.0) k/uL Eosinophils # 0.2 (0-0.7) k/uL Basophils # 0.0 (0-0.2) k/uL PT 10.3 (9.0-12.0) sec INR 1.0 (<1.2) APTT 25.7 (22.0-30.0) sec Sodium 142 (137-145) mmol/L Potassium 5.3 H (3.5-5.1) mmol/L Chloride 107 (98-107) mmol/L Carbon Dioxide 23 (22-30) mmol/L Anion Gap 12 mmol/L BUN 12 (9-20) mg/dL Creatinine 0.83 (0.66-1.25) mg/dL Est GFR (CKD-EPI)AfAm >90 (>60 ml/min/1.73 sqM) Est GFR (CKD-EPI)NonAf >90 (>60 ml/min/1.73 sqM) Glucose 106 H (74-99) mg/dL Calcium 9.8 (8.4-10.2) mg/dL Total Bilirubin 1.2 (0.2-1.3) mg/dL AST 52 (17-59) U/L ALT 59 (21-72) U/L Alkaline Phosphatase 53 (38-126) U/L Total Protein 8.6 H (6.3-8.2) g/dL Albumin 5.0 (3.5-5.0) g/dL Amylase 46 (30-110) U/L Lipase 65 (23-300) U/L Urine Color Urine Appearance (Clear) Urine pH (5.0-8.0) Ur Specific [place] (1.001-1.035) Urine Protein (Negative) Urine Glucose (UA) (Negative) Urine Ketones (Negative) Urine Blood (Negative) Urine Nitrite (Negative) Urine Bilirubin (Negative) Urine Urobilinogen (<2.0) mg/dL Ur Leukocyte Esterase (Negative) Stool Occult Blood (Negative) 05/09/18 05/09/18 Range/Units 14:00 15:02 WBC (3.8-10.6) k/uL RBC (4.30-5.90) m/uL Hgb (13.0-17.5) gm/dL Hct (39.0-53.0) % MCV (80.0-100.0) fL MCH (25.0-35.0) pg MCHC (31.0-37.0) g/dL RDW (11.5-15.5) % Plt Count (150-450) k/uL Neutrophils % % Lymphocytes % % Monocytes % % Eosinophils % % Basophils % % Neutrophils # (1.3-7.7) k/uL Lymphocytes # (1.0-4.8) k/uL Monocytes # (0-1.0) k/uL Eosinophils # (0-0.7) k/uL Basophils # (0-0.2) k/uL PT (9.0-12.0) sec INR (<1.2) APTT (22.0-30.0) sec Sodium (137-145) mmol/L Potassium (3.5-5.1) mmol/L Chloride (98-107) mmol/L Carbon Dioxide (22-30) mmol/L Anion Gap mmol/L BUN (9-20) mg/dL Creatinine (0.66-1.25) mg/dL Est GFR (CKD-EPI)AfAm (>60 ml/min/1.73 sqM) Est GFR (CKD-EPI)NonAf (>60 ml/min/1.73 sqM) Glucose (74-99) mg/dL Calcium (8.4-10.2) mg/dL Total Bilirubin (0.2-1.3) mg/dL AST (17-59) U/L ALT (21-72) U/L Alkaline Phosphatase (38-126) U/L Total Protein (6.3-8.2) g/dL Albumin (3.5-5.0) g/dL Amylase (30-110) U/L Lipase (23-300) U/L Urine Color Light Yellow Urine Appearance Clear (Clear) Urine pH 6.5 (5.0-8.0) Ur Specific [place] >1.050 H (1.001-1.035) Urine Protein Negative (Negative) Urine Glucose (UA) Negative (Negative) Urine Ketones Negative (Negative) Urine Blood Negative (Negative) Urine Nitrite Negative (Negative) Urine Bilirubin Negative (Negative) Urine Urobilinogen <2.0 (<2.0) mg/dL Ur Leukocyte Esterase Negative (Negative) Stool Occult Blood Positive (Negative) Disposition Clinical Impression: GI bleed, Cough, Kidney mass Disposition: HOME SELF-CARE Condition: Good Instructions: Gastrointestinal Bleeding (ED) Additional Instructions: Please follow-up with the family physician/GI. Please discuss about kidney mass that was seen on CAT scan and follow-up with further imaging. Please follow-up with GI discussed possible colonoscopy. Return here to the emergency room symptoms increase or worsen or for any other concerns. Is patient prescribed a controlled substance at d/c from ED?: No Referrals: Zena Villavicencio MD [Primary Care Provider] - 1-2 days Time of Disposition: 16:53
[2018-05-09 14:22] LABS: Basophils % (A) 0 %; Eosinophils # (A) 0.2 k/uL (0-0.7); Eosinophils % (A) 2 %; HGB 17.6 gm/dL (13.0-17.5); Lymphocytes % (A) 21 %; MCH 31.8 pg (25.0-35.0); MCHC 35.2 g/dL (31.0-37.0); MCV 90.3 fL (80.0-100.0); Mean Platelet Volume 7.3; Monocytes # (A) 0.7 k/uL (0-1.0); Monocytes % (A) 7 %; Neutrophils # (A) 6.5 k/uL (1.3-7.7); Neutrophils % (A) 68 %; Platelet Count 228 k/uL (150-450); RBC 5.53 m/uL (4.30-5.90); RDW 13.4 % (11.5-15.5); WBC 9.6 k/uL (3.8-10.6)
--- NOTE | 2018-05-09 14:36 | XR ---
EXAMINATION TYPE: XR chest 2V DATE OF EXAM: 05/09/2018 COMPARISON: NONE HISTORY: Cough, abdominal pain, rectal bleeding and hypertension TECHNIQUE: Frontal and lateral views of the chest are obtained. FINDINGS: There is no focal air space opacity, pleural effusion, or pneumothorax seen. The cardiac silhouette size is within normal limits. The osseous structures are intact. IMPRESSION: No acute cardiopulmonary process.
[2018-05-09 14:42] LABS: ALT 59 U/L (21-72); AST 52 U/L (17-59); Alkaline Phosphatase 53 U/L (38-126); Amylase 46 U/L (30-110); Anion Gap 12 mmol/L; Blood Urea Nitrogen 12 mg/dL (9-20); Calcium 9.8 mg/dL (8.4-10.2); Carbon Dioxide 23 mmol/L (22-30); Chloride 107 mmol/L (98-107); Glucose 106 mg/dL (74-99); Lipase 65 U/L (23-300); Potassium 5.3 mmol/L (3.5-5.1); Sodium 142 mmol/L (137-145); Total Bilirubin 1.2 mg/dL (0.2-1.3); Total Protein 8.6 g/dL (6.3-8.2)
--- NOTE | 2018-05-09 14:44 | CT ---
EXAMINATION TYPE: CT abdomen pelvis w con DATE OF EXAM: 05/09/2018 COMPARISON: None INDICATION: Abdominal pain DLP: 893.5 mGycm, Automated exposure control for dose reduction was used. CONTRAST: 100 ml mL of Isovue 300. Study performed without Oral Contrast TECHNIQUE: Axial images were obtained from above the diaphragm to the pubic rami in the axial plane a t 5 mm thick sections. Reconstructed images are reviewed on the computer in the coronal plane. FINDINGS: Limited CT sections are obtained the lung bases. The lung bases are clear. CT ABDOMEN: Liver: There is moderate fatty infiltration of the liver. No discrete masses or cysts are evident. Spleen: Normal Pancreas: Normal Adrenal glands: The adrenal glands are normal. Gallbladder: Normal Kidneys: No masses are evident. No hydronephrosis is present. There is a 1.0 cm low density structu re on the medial left kidney. This measures 34 Hounsfield units. Recommend ultrasound for additional evaluation. This is not a simple cyst based on CT exam. Delayed images were obtained through the kid neys, which remain unremarkable. Aorta: Normal Inferior vena cava: Normal. CT PELVIS: Loops of bowel within the abdomen and pelvis are normal. Study is without oral contrast limiting the evaluation. Appendix: Normal as visualized. Urinary bladder: Normal as visualized. Genitourinary structures: Prostate is unremarkable. Osseous structures: No suspicious lytic or sclerotic lesions. IMPRESSIONS: 1. Moderate fatty infiltration liver. 2. 1 cm low density structure medial left kidney. Ultrasound is recommended to evaluate this finding.
[2018-05-09 14:51] LABS: Partial Thromboplastin Time 25.7 sec (22.0-30.0); Prothrombin Time 10.3 sec (9.0-12.0)
[2018-05-09 15:23] LABS: Appearance,Urine Clear (Clear); Bilirubin,Urine Negative (Negative); Blood,Urine Negative (Negative); Color,Urine Light Yellow; Glucose,Urine (UA) Negative (Negative); Ketones,Urine Negative (Negative); Leukocyte Esterase,Urine Negative (Negative); Nitrite,Urine Negative (Negative); PH, Urine 6.5 (5.0-8.0); Protein,Urine Negative (Negative); Urobilinogen,Urine <2.0 mg/dL (<2.0)
[2018-05-09 15:37] LABS: Specific Gravity,Urine >1.050 (1.001-1.035)
--- NOTE | 2018-05-09 16:12 | US ---
EXAMINATION TYPE: US kidneys/renal and bladder DATE OF EXAM: 05/09/2018 COMPARISON: CT 05/09/2018 CLINICAL HISTORY: Pain. Hypodense Area visualized on left kidney today on CT EXAM MEASUREMENTS: Right Kidney: 11.8 x 5.1 x 5.2 cm Left Kidney: 11.7 x 4.9 x 4.4 cm Right Kidney: No hydronephrosis or masses seen Left Kidney: No hydronephrosis visualized. Area visualized on CT is not visualized with certainty on ultrasound. [employer], [place] also scanned patient. Bladder: wnl Bilateral Jets seen: Yes IMPRESSION: Hypodensity on the CT examination not identified by ultrasound. Underlying mass should be considered within the differential. Follow-up MRI with contrast as an outpatient can be performed for reevaluati on. Alternatively, short-term follow-up CT contrast of the abdomen could be performed to reevaluate t he left kidney.
[2018-05-09 16:57] VITALS: BP 151/99; PULSE 79; RESP 18; TEMP 98.2
== END 2018-05-09 17:03 | disposition home or self-care (01) ==
LOC: EC 13:25
DX: K92.2 Gastrointestinal hemorrhage, unspecified (principal); N28.89 Other specified disorders of kidney and ureter; R05 Cough; R09.89 Other specified symptoms and signs involving the circulatory and respiratory systems; I10 Essential (primary) hypertension; F41.9 Anxiety disorder, unspecified; Z79.899 Other long term (current) drug therapy; Z88.8 Allergy status to other drugs, medicaments and biological substances; Z88.6 Allergy status to analgesic agent
CPT/HCPCS: 99284; 96374; 96361; 36415; 80053; 82150; 83690; 85025; 85610; 85730; 82272; 81003; 71046; 76770; 74177; J2405; Q9967

== ENCOUNTER 2019-06-14 11:07 | Emergency (ER) | payer OTHER ==
[2019-06-14 11:16] VITALS: RESP 18
--- NOTE | 2019-06-14 11:42 | ED ---
Lower Extremity Injury HPI - General Chief Complaint: Extremity Injury, Lower Stated Complaint: Ankle injury Time Seen by Provider: 06/14/19 11:24 Source: patient, RN notes reviewed Mode of arrival: ambulatory Limitations: no limitations - History of Present Illness Initial Comments: 39-year-old male presents emergency department with chief complaint of right ankle pain. Patient states he had an injury yesterday. He states that he stepped on a soft spot states is something, went to fall but caught himself. He rolled his right ankle he complains of pain, swelling. No prior fractures. Patient unable to bear weight secondary to discomfort no other injuries noted. - Related Data Home Medications Medication Instructions Recorded Confirmed ALPRAZolam [Xanax] 1 mg PO BID 05/09/18 05/09/18 Ibuprofen [Motrin Ib] 800 mg PO Q6H PRN 05/09/18 05/09/18 Lisinopril [Zestril] 20 mg PO BID 05/09/18 05/09/18 Previous Rx's Medication Instructions Recorded Ondansetron Odt [Zofran ODT] 4 mg PO Q8HR PRN #20 tab 05/09/18 Ibuprofen [Motrin] 600 mg PO Q8HR PRN #30 tab 06/14/19 Allergies Allergy/AdvReac Type Severity Reaction Status Date / Time levetiracetam [From Keppra] Allergy Unknown Verified 06/14/19 11:16 clonazepam AdvReac Confusion Verified 06/14/19 11:16 lamotrigine [From Lamictal] AdvReac Confusion Verified 06/14/19 11:16 oxcarbazepine AdvReac Swelling Verified 06/14/19 11:16 [From Trileptal] tramadol AdvReac SEZIURES Verified 06/14/19 11:16 Review of Systems ROS Statement: Those systems with pertinent positive or pertinent negative responses have been documented in the HPI. ROS Other: All systems not noted in ROS Statement are negative. Past Medical History Past Medical History: Hypertension, Seizure Disorder Additional Past Medical History / Comment(s): chronic back pain, torn mcl History of Any Multi-Drug Resistant Organisms: None Reported Past Surgical History: Orthopedic Surgery Additional Past Surgical History / Comment(s): epidural shots in back, acl repair, torn mcl right knee, Past Psychological History: ADD/ADHD, Anxiety Smoking Status: Never smoker Past Alcohol Use History: None Reported Past Drug Use History: None Reported General Exam Limitations: no limitations General appearance: alert, in no apparent distress Head exam: Present: atraumatic, normocephalic, normal inspection Respiratory exam: Present: normal lung sounds bilaterally. Absent: respiratory distress, wheezes, rales, rhonchi, stridor Cardiovascular Exam: Present: regular rate, normal rhythm, normal heart sounds. Absent: systolic murmur, diastolic murmur, rubs, gallop, clicks Extremities exam: Present: other (Right ankle there is moderate swelling, tenderness diffusely there is no proximal tib-fib tenderness no distal foot tenderness noted neurovascular intact) Course Vital Signs 06/14/19 11:13 Temperature 97.8 F Pulse Rate 106 H Respiratory 18 Rate Blood Pressure 144/91 O2 Sat by Pulse 99 Oximetry Medical Decision Making - Medical Decision Making X-ray of ankle shows no acute osseous lesion. Symptoms are consistent with a right ankle sprain. [facility] will follow-up with orthopedics and return for any worsening symptoms. Disposition Clinical Impression: Sprain of ankle, right Disposition: HOME SELF-CARE Condition: Stable Instructions (If sedation given, give patient instructions): Ankle Sprain (ED) Additional Instructions: Please return to the Emergency Department if symptoms worsen or any other concerns. Prescriptions: Ibuprofen [Motrin] 600 mg PO Q8HR PRN #30 tab PRN Reason: Pain Is patient prescribed a controlled substance at d/c from ED?: No Referrals: Zena Villavicencio MD [Primary Care Provider] - 1-2 days Jose E Pedroza MD [Medical Doctor] - 1-2 days Time of Disposition: 12:26
--- NOTE | 2019-06-14 12:17 | XR ---
EXAMINATION TYPE: XR ankle complete RT , 3 VIEWS DATE OF EXAM ORDERED: 06/14/2019. HISTORY: pain. COMPARISON: None. FINDINGS: No fracture, dislocation or ankle joint effusion is seen. There are small plantar and Achi lles calcaneal spurs. IMPRESSION: NO ACUTE OSSEOUS LESION.
[2019-06-14 12:46] VITALS: BP 149/99; PULSE 95; TEMP 98.5
== END 2019-06-14 12:39 | disposition home or self-care (01) ==
LOC: EC 11:07
DX: S93.401A Sprain of unspecified ligament of right ankle, initial encounter (principal); I10 Essential (primary) hypertension; F41.9 Anxiety disorder, unspecified; Z79.899 Other long term (current) drug therapy; Z88.5 Allergy status to narcotic agent; Z88.8 Allergy status to other drugs, medicaments and biological substances; X50.9XXA Other and unspecified overexertion or strenuous movements or postures, initial encounter
CPT/HCPCS: 73610; 99283; 29515; L4350

== ENCOUNTER 2020-02-15 08:21 | Emergency (ER) | payer OTHER ==
[2020-02-15 08:27] VITALS: RESP 18; TEMP 98.1
[2020-02-15 08:48] VITALS: BP 148/111; PULSE 78
--- NOTE | 2020-02-15 08:48 | ED ---
General Adult HPI - General Chief complaint: Extremity Problem,Nontraumatic Stated complaint: Both Hand pain and swelling Time Seen by Provider: 02/15/20 08:29 Source: patient, RN notes reviewed, old records reviewed Mode of arrival: ambulatory Limitations: no limitations - History of Present Illness Initial comments: 39-year-old male presenting with pain and numbness in both hands. He has follow-up with his primary care physician regarding these symptoms within the past one month. He states he's had carpal tunnel for the past several years and has worn wrist splints. He states the pain is worsening and preventing him from getting sleep. He was seen by his primary care physician and prescribed [place] with only minimal relief. He has also been taking Motrin. He denies lower extremity swelling. Denies chest pain or dyspnea. Denies facial swelling. Denies fever. His only symptoms is his bilateral hand pain and numbness. Denies neck pain or injury. - Related Data Home Medications Medication Instructions Recorded Confirmed ALPRAZolam [Xanax] 1 mg PO BID 05/09/18 05/09/18 Ibuprofen [Motrin Ib] 800 mg PO Q6H PRN 05/09/18 05/09/18 lisinopriL [Zestril] 20 mg PO BID 05/09/18 05/09/18 Previous Rx's Medication Instructions Recorded Ondansetron Odt [Zofran ODT] 4 mg PO Q8HR PRN #20 tab 05/09/18 Ibuprofen [Motrin] 600 mg PO Q8HR PRN #30 tab 06/14/19 HYDROcodone/APAP 5-325MG [[place] 1 tab PO Q6HR PRN #12 tab 02/15/20 5-325] Allergies Allergy/AdvReac Type Severity Reaction Status Date / Time levetiracetam [From Keppra] Allergy Unknown Verified 02/15/20 08:27 clonazepam AdvReac Confusion Verified 02/15/20 08:27 lamotrigine [From Lamictal] AdvReac Confusion Verified 02/15/20 08:27 oxcarbazepine AdvReac Swelling Verified 02/15/20 08:27 [From Trileptal] tramadol AdvReac SEZIURES Verified 02/15/20 08:27 Review of Systems ROS Statement: Those systems with pertinent positive or pertinent negative responses have been documented in the HPI. ROS Other: All systems not noted in ROS Statement are negative. Past Medical History Past Medical History: Hypertension, Seizure Disorder Additional Past Medical History / Comment(s): chronic back pain, torn mcl History of Any Multi-Drug Resistant Organisms: None Reported Past Surgical History: Orthopedic Surgery Additional Past Surgical History / Comment(s): epidural shots in back, acl repair, torn mcl right knee, Past Psychological History: ADD/ADHD, Anxiety Smoking Status: Never smoker Past Alcohol Use History: None Reported Past Drug Use History: None Reported General Exam Limitations: no limitations General appearance: alert, in no apparent distress Head exam: Present: atraumatic, normocephalic Eye exam: Present: normal appearance, PERRL ENT exam: Present: normal exam Neck exam: Present: normal inspection. Absent: tenderness, meningismus Respiratory exam: Present: normal lung sounds bilaterally. Absent: respiratory distress, wheezes Cardiovascular Exam: Present: regular rate, normal rhythm GI/Abdominal exam: Present: soft. Absent: distended, tenderness Extremities exam: Present: other (Bilateral radial pulses 2+. Decreased sensation in both hands, all 5 digits. There is minimal bilateral swelling of the hands. Normal forms, normal range of motion at the elbows). Absent: pedal edema Neurological exam: Present: alert, oriented X3 Psychiatric exam: Present: normal affect, normal mood Course Vital Signs 02/15/20 08:24 Temperature 98.1 F Pulse Rate 67 Respiratory 18 Rate Blood Pressure 184/115 O2 Sat by Pulse 97 Oximetry - Reevaluation(s) Reevaluation #1: 02/15/20 08:46 Patient does have elevated blood pressure, he did not take his lisinopril this morning. He will take this medication when he gets home. Medical Decision Making - Medical Decision Making Patient will be given orthopedic follow-up for persistent progressive symptoms of carpal tunnel. Return parameters discussed. Disposition Clinical Impression: Bilateral hand pain, Hypertension, Carpal tunnel syndrome, bilateral Disposition: HOME SELF-CARE Condition: Good Instructions (If sedation given, give patient instructions): Paresthesia (ED) Prescriptions: HYDROcodone/APAP 5-325MG [[place] 5-325] 1 tab PO Q6HR PRN #12 tab PRN Reason: Pain Is patient prescribed a controlled substance at d/c from ED?: No Referrals: Nonstaff,Physician [REFERRING] - 1-2 days Sam Blackwell MD [Primary Care Provider] - 1-2 days Kalia Aguilar DO [Medical Doctor] - 1-2 days Time of Disposition: 08:47
== END 2020-02-15 09:04 | disposition home or self-care (01) ==
LOC: EC 08:21
DX: G56.03 Carpal tunnel syndrome, bilateral upper limbs (principal); I10 Essential (primary) hypertension; F41.9 Anxiety disorder, unspecified; G89.29 Other chronic pain; M54.9 Dorsalgia, unspecified; Z98.890 Other specified postprocedural states; Z79.899 Other long term (current) drug therapy; Z88.8 Allergy status to other drugs, medicaments and biological substances
CPT/HCPCS: 99283

== ENCOUNTER 2020-06-26 08:42 | Emergency (ER) | payer OTHER ==
[2020-06-26 08:59] VITALS: BP 179/117; PULSE 88; RESP 18; TEMP 98.2
--- NOTE | 2020-06-26 09:24 | ED ---
General Adult HPI - General Chief complaint: Recheck/Abnormal Lab/Rx Stated complaint: pain in hands/trouble sleeping Time Seen by Provider: 06/26/20 09:13 Source: patient Mode of arrival: ambulatory Limitations: no limitations - History of Present Illness Initial comments: Patient is a 40-year-old male that came to the ER with his complaining of b ilateral hand pain, burning, numbness. He had bilateral carpal tunnel release surgery. She noted that he tried to call surgeon today but office was closed so he decided to come to the emergency department. But he's been able unable to sleep for the last several days only getting a couple hours due to pain. He noted that he finished taking a steroid pack that he was prescribed it has not helped reduce pain. He did report that he does get narcoleptic seizures if he goes for days without sleeping. He was ordered an IV was given to help with sleep and/or pain. He denied any chest pain, shortness of breath, weakness, fever, fatigue, chills, nausea, vomiting, diarrhea, constipation - Related Data Home Medications Medication Instructions Recorded Confirmed ALPRAZolam [Xanax] 1 mg PO BID 05/09/18 05/09/18 Ibuprofen [Motrin Ib] 800 mg PO Q6H PRN 05/09/18 05/09/18 lisinopriL [Zestril] 20 mg PO BID 05/09/18 05/09/18 Previous Rx's Medication Instructions Recorded Ondansetron Odt [Zofran ODT] 4 mg PO Q8HR PRN #20 tab 05/09/18 Ibuprofen [Motrin] 600 mg PO Q8HR PRN #30 tab 06/14/19 HYDROcodone/APAP 5-325MG [[place] 1 tab PO Q6HR PRN #12 tab 02/15/20 5-325] Allergies Allergy/AdvReac Type Severity Reaction Status Date / Time levetiracetam [From Keppra] Allergy Unknown Verified 06/26/20 08:59 clonazepam AdvReac Confusion Verified 06/26/20 08:59 lamotrigine [From Lamictal] AdvReac Confusion Verified 06/26/20 08:59 oxcarbazepine AdvReac Swelling Verified 06/26/20 08:59 [From Trileptal] tramadol AdvReac SEZIURES Verified 06/26/20 08:59 Review of Systems ROS Statement: Those systems with pertinent positive or pertinent negative responses have been documented in the HPI. ROS Other: All systems not noted in ROS Statement are negative. Past Medical History Past Medical History: Hypertension, Seizure Disorder Additional Past Medical History / Comment(s): chronic back pain, torn mc History of Any Multi-Drug Resistant Organisms: None Reported Past Surgical History: Orthopedic Surgery Additional Past Surgical History / Comment(s): epidural shots in back, acl repair, torn mcl right knee, Past Psychological History: ADD/ADHD, Anxiety Smoking Status: Never smoker Past Alcohol Use History: None Reported Past Drug Use History: None Reported General Exam Limitations: no limitations General appearance: alert, in no apparent distress Head exam: Present: atraumatic, normocephalic, normal inspection Eye exam: Present: normal appearance, PERRL, EOMI. Absent: scleral icterus, conjunctival injection, periorbital swelling ENT exam: Present: normal exam, mucous membranes moist Neck exam: Present: normal inspection. Absent: tenderness, meningismus, lymphadenopathy Respiratory exam: Present: normal lung sounds bilaterally. Absent: respiratory distress, wheezes, rales, rhonchi, stridor Cardiovascular Exam: Present: regular rate, normal rhythm, normal heart sounds. Absent: systolic murmur, diastolic murmur, rubs, gallop, clicks Extremities exam: Present: normal inspection, full ROM, normal capillary refill, other (Patient has numbness/burning bilateral hands he is status post carpal tunnel release incisions are well-healed.). Absent: tenderness, pedal edema, joint swelling, calf tenderness Neurological exam: Present: alert, oriented X3, CN II-XII intact Psychiatric exam: Present: normal affect, normal mood Skin exam: Present: warm, dry, intact, normal color. Absent: rash Course Vital Signs 06/26/20 08:54 Temperature 98.2 F Pulse Rate 88 Respiratory 18 Rate Blood Pressure 179/117 O2 Sat by Pulse 98 Oximetry Medical Decision Making - Medical Decision Making 40-year-old male complaining of bilateral hand pain status post bilateral carpal tunnel release. Pain medication given. No workup or testing needed. Patient informs that if nerve damage prior to surgery was extensive enough the pain and burning sensation can last for long time. Disposition Clinical Impression: Carpal tunnel syndrome, Neuropathy, Status post carpal tunnel release Disposition: HOME SELF-CARE Condition: Stable Instructions (If sedation given, give patient instructions): Paresthesia (ED), Peripheral Neuropathy (ED) Additional Instructions: Please return to the Emergency Department if symptoms worsen or any other concerns. Follow-up with orthopedic surgeon as soon as possible for further evaluation and possible follow-up EMG.. Take Tylenol Motrin as needed for pain. Is patient prescribed a controlled substance at d/c from ED?: No Referrals: Efraín Bunch MD [Primary Care Provider] - 1-2 days Decision Time: 09:38
[2020-06-26] MEDS ORDERED: HYDROcodone/APAP 5-325MG 1 EACH TAB PO STA (09:28)
== END 2020-06-26 09:58 | disposition home or self-care (01) ==
LOC: EC 08:42
DX: G56.03 Carpal tunnel syndrome, bilateral upper limbs (principal); G62.9 Polyneuropathy, unspecified; I10 Essential (primary) hypertension; G89.29 Other chronic pain; M54.9 Dorsalgia, unspecified; F41.9 Anxiety disorder, unspecified; Z79.899 Other long term (current) drug therapy; Z88.8 Allergy status to other drugs, medicaments and biological substances; Z88.5 Allergy status to narcotic agent; Z98.890 Other specified postprocedural states
CPT/HCPCS: 99283

== ENCOUNTER 2021-01-05 15:30 | Emergency (ER) | payer OTHER ==
[2021-01-05 15:35] VITALS: TEMP 98.1
[2021-01-05] MEDS ORDERED: HYDROmorphone 0.5 MG/0.5 ML SYRINGE IVP STA (16:10)
[2021-01-05] MEDS ORDERED: KETOROLAC 15 MG/ML 1 ML VIAL IVP STA (16:10)
[2021-01-05] MEDS ORDERED: SODIUM CHLORIDE 0.9% 1,000 ML IV STA (16:10)
--- NOTE | 2021-01-05 16:16 | ED ---
General Adult HPI - General Chief complaint: Abdominal Pain Stated complaint: Abdominal Pain Time Seen by Provider: 01/05/21 15:35 Source: patient, RN notes reviewed, old records reviewed Mode of arrival: ambulatory Limitations: no limitations - History of Present Illness Initial comments: This is a 40-year-old male presents emergency Department complaining of left lower quadrant abdominal pain. Patient states it suddenly came on at about 9:30. Patient states a little radiation down to his testicle and some radiation up into the flank area. Patient denies any dysuria hematuria urinary frequency. Patient states he had similar episode couple of days ago but it resolved. Patient states he is not nauseous she has not vomited. Patient denies any diarrhea. Patient denies any recent fever chills or cough per patient denies any difficulty breathing or chest pain. - Related Data Home Medications Medication Instructions Recorded Confirmed lisinopriL [Zestril] 20 mg PO BID 05/09/18 01/05/21 Previous Rx's Medication Instructions Recorded Ketorolac [Toradol] 10 mg PO Q6HR #15 tab 01/05/21 Tamsulosin [Flomax] 0.4 mg PO DAILY #10 cap 01/05/21 Allergies Allergy/AdvReac Type Severity Reaction Status Date / Time levetiracetam [From Keppra] Allergy Unknown Verified 01/05/21 17:59 clonazepam AdvReac Confusion Verified 01/05/21 17:59 lamotrigine [From Lamictal] AdvReac Confusion Verified 01/05/21 17:59 oxcarbazepine AdvReac Swelling Verified 01/05/21 17:59 [From Trileptal] tramadol AdvReac SEZIURES Verified 01/05/21 17:59 Review of Systems ROS Statement: Those systems with pertinent positive or pertinent negative responses have been documented in the HPI. ROS Other: All systems not noted in ROS Statement are negative. Past Medical History Past Medical History: Hypertension, Seizure Disorder Additional Past Medical History / Comment(s): chronic back pain, torn mc History of Any Multi-Drug Resistant Organisms: None Reported Past Surgical History: Orthopedic Surgery Additional Past Surgical History / Comment(s): epidural shots in back, acl repair, torn mcl right knee,carpal tunnel both hands Past Psychological History: ADD/ADHD, Anxiety Smoking Status: Never smoker Past Alcohol Use History: None Reported Past Drug Use History: Marijuana General Exam - General Exam Comments Initial Comments: GENERAL: Patient is well-developed and well-nourished. Patient is nontoxic and well- hydrated and is in moderate distress. ENT: Neck is soft and supple. No significant lymphadenopathy is noted. Oropharynx is clear. Moist mucous membranes. Neck has full range of motion without eliciting any pain. EYES: The sclera were anicteric and conjunctiva were pink and moist. Extraocular movements were intact and pupils were equal round and reactive to light. Eyelids were unremarkable. PULMONARY: Unlabored respirations. Good breath sounds bilaterally. No audible rales rhonchi or wheezing was noted. CARDIOVASCULAR: There is a regular rate and rhythm without any murmurs gallops or rubs. ABDOMEN: Patient's abdomen is soft there is no rebound however there is slight tenderness in the left lower quadrant. SKIN: Skin is clear with no lesions or rashes and otherwise unremarkable. NEUROLOGIC: Patient is alert and oriented x3. Cranial nerves II through XII are grossly intact. Motor and sensory are also intact. Normal speech, volume and content. Symmetrical smile. MUSCULOSKELETAL: Normal extremities with adequate strength and full range of motion. LYMPHATICS: No significant lymphadenopathy is noted PSYCHIATRIC: Normal psychiatric evaluation. Limitations: no limitations Course Vital Signs 01/05/21 01/05/21 01/05/21 15:32 16:28 17:00 Temperature 98.1 F Pulse Rate 55 L 78 77 Respiratory 16 20 20 Rate Blood Pressure 217/134 157/115 161/113 O2 Sat by Pulse 99 96 96 Oximetry Medical Decision Making - Medical Decision Making CT of the abdomen shows a 2 mm stone on the left distal ureter with hydroureter ureter hydronephrosis. Patient has no signs of infection in the urine. Patient got relief with Toradol and Dilaudid. KUB shows no acute abnormality. Patient will be sent home with Toradol and Flomax. We will recommend patient follow-up with urology - Lab Data Result diagrams: 01/05/21 16:19 01/05/21 16:19 Lab Results 01/05/21 01/05/21 01/05/21 Range/Units 16:19 16:19 16:54 WBC 14.1 H (3.8-10.6) k/uL RBC 5.15 (4.30-5.90) m/uL Hgb 16.3 (13.0-17.5) gm/dL Hct 46.4 (39.0-53.0) % MCV 90.1 (80.0-100.0) fL MCH 31.7 (25.0-35.0) pg MCHC 35.2 (31.0-37.0) g/dL RDW 12.3 (11.5-15.5) % Plt Count 212 (150-450) k/uL MPV 7.8 Neutrophils % 71 % Lymphocytes % 16 % Monocytes % 8 % Eosinophils % 3 % Basophils % 1 % Neutrophils # 10.0 H (1.3-7.7) k/uL Lymphocytes # 2.3 (1.0-4.8) k/uL Monocytes # 1.1 H (0-1.0) k/uL Eosinophils # 0.4 (0-0.7) k/uL Basophils # 0.1 (0-0.2) k/uL Sodium 139 (137-145) mmol/L Potassium 3.6 (3.5-5.1) mmol/L Chloride 104 (98-107) mmol/L Carbon Dioxide 26 (22-30) mmol/L Anion Gap 9 mmol/L BUN 12 (9-20) mg/dL Creatinine 1.09 (0.66-1.25) mg/dL Est GFR (CKD-EPI)AfAm >90 (>60 ml/min/1.73 sqM) Est GFR (CKD-EPI)NonAf 85 (>60 ml/min/1.73 sqM) Glucose 115 H (74-99) mg/dL Calcium 9.6 (8.4-10.2) mg/dL Total Bilirubin 0.3 (0.2-1.3) mg/dL AST 25 (17-59) U/L ALT 21 (4-49) U/L Alkaline Phosphatase 70 (38-126) U/L Total Protein 7.1 (6.3-8.2) g/dL Albumin 4.5 (3.5-5.0) g/dL Amylase 47 (30-110) U/L Lipase 54 (23-300) U/L Urine Color Yellow Urine Appearance Cloudy (Clear) Urine pH 7.5 (5.0-8.0) Ur Specific [place] 1.023 (1.001-1.035) Urine Protein Trace H (Negative) Urine Glucose (UA) Negative (Negative) Urine Ketones Negative (Negative) Urine Blood Negative (Negative) Urine Nitrite Negative (Negative) Urine Bilirubin Negative (Negative) Urine Urobilinogen <2.0 (<2.0) mg/dL Ur Leukocyte Esterase Negative (Negative) Urine RBC 1 (0-5) /hpf Urine WBC 1 (0-5) /hpf Ur Squamous Epith Cells 4 (0-4) /hpf Urine Bacteria Rare H (None) /hpf Urine Mucus Moderate H (None) /hpf Disposition Clinical Impression: Kidney stone Disposition: HOME SELF-CARE Condition: Good Instructions (If sedation given, give patient instructions): Kidney Stones (ED) Prescriptions: Tamsulosin [Flomax] 0.4 mg PO DAILY #10 cap Ketorolac [Toradol] 10 mg PO Q6HR #15 tab Is patient prescribed a controlled substance at d/c from ED?: No Referrals: Efraín Bunch MD [Primary Care Provider] - 1-2 days Time of Disposition: 18:20
[2021-01-05 16:27] LABS: Basophils # (A) 0.1 k/uL (0-0.2); Basophils % (A) 1 %; Eosinophils # (A) 0.4 k/uL (0-0.7); Eosinophils % (A) 3 %; HCT 46.4 % (39.0-53.0); HGB 16.3 gm/dL (13.0-17.5); Lymphocytes # (A) 2.3 k/uL (1.0-4.8); Lymphocytes % (A) 16 %; MCH 31.7 pg (25.0-35.0); MCHC 35.2 g/dL (31.0-37.0); MCV 90.1 fL (80.0-100.0); Mean Platelet Volume 7.8; Monocytes # (A) 1.1 k/uL (0-1.0); Monocytes % (A) 8 %; Neutrophils % (A) 71 %; Platelet Count 212 k/uL (150-450); RBC 5.15 m/uL (4.30-5.90); RDW 12.3 % (11.5-15.5); WBC 14.1 k/uL (3.8-10.6)
[2021-01-05 16:40] LABS: ALT 21 U/L (4-49); AST 25 U/L (17-59); African American GFR (CKD) >90 (>60 ml/min/1.73 sqM); Albumin 4.5 g/dL (3.5-5.0); Alkaline Phosphatase 70 U/L (38-126); Amylase 47 U/L (30-110); Anion Gap 9 mmol/L; Blood Urea Nitrogen 12 mg/dL (9-20); Calcium 9.6 mg/dL (8.4-10.2); Carbon Dioxide 26 mmol/L (22-30); Chloride 104 mmol/L (98-107); Glucose 115 mg/dL (74-99); Lipase 54 U/L (23-300); Non-African American GFR(CKD) 85 (>60 ml/min/1.73 sqM); Potassium 3.6 mmol/L (3.5-5.1); Sodium 139 mmol/L (137-145); Total Bilirubin 0.3 mg/dL (0.2-1.3); Total Protein 7.1 g/dL (6.3-8.2)
[2021-01-05 17:03] LABS: Appearance,Urine Cloudy (Clear); Bacteria,Urine Rare /hpf; Bilirubin,Urine Negative (Negative); Blood,Urine Negative (Negative); Color,Urine Yellow; Glucose,Urine (UA) Negative (Negative); Ketones,Urine Negative (Negative); Leukocyte Esterase,Urine Negative (Negative); Mucus,Urine Moderate /hpf; Nitrite,Urine Negative (Negative); PH, Urine 7.5 (5.0-8.0); Protein,Urine Trace (Negative); RBC,Urine 1 /hpf (0-5); Specific Gravity,Urine 1.023 (1.001-1.035); Squamous Epithelial Cell,Urine 4 /hpf (0-4); Urobilinogen,Urine <2.0 mg/dL (<2.0); WBC,Urine 1 /hpf (0-5)
--- NOTE | 2021-01-05 17:20 | XR ---
EXAMINATION TYPE: XR KUB DATE OF EXAM: 01/05/2021 COMPARISON: NONE HISTORY: 40 years Male. STUDY INDICATION GIVEN: Abdominal pain TECHNIQUE: Abdominal radiograph one view FINDINGS AND IMPRESSION: Nonspecific air fluid level in the mid abdomen. There is no evidence of bowel obstruction. No evidenc e of free intra-abdominal air. No abnormal calcifications other than some phleboliths are in the pelvis. Tiny osseous fragment lateral to the superior rim of the left acetabulum noted could represent loose body. No acute osseous abnormality.
--- NOTE | 2021-01-05 17:31 | CT ---
EXAMINATION TYPE: CT abdomen pelvis wo con DATE OF EXAM: 01/05/2021 COMPARISON: 12/20/2017 HISTORY: Left lower quadrant abdominal pain. TECHNIQUE: CT scan of the abdomen and pelvis performed without contrast CT DLP: 719.1 mGycm Automated exposure control for dose reduction was used. FINDINGS: Lack of IV contrast limits evaluation of abdominal and pelvic structures. Subsegmental atelectasis is seen in the lung bases. The heart does not appear to be enlarged. Liver, gallbladder, spleen, pancreas, and adrenal glands are within normal limit. No abnormal biliary ductal dilatation seen. Kidneys are normal in position. There is a left distal ureterovesical junction 2 millimeter calculus with mild left hydroureter and mild left hydronephrosis. There are 1 to 2 mm scattered calculi in the right kidney, appear to be within the parenchyma could be vascular. There is an ill-defined low atte nuating lesion in the left kidney upper pole medially was described on prior study but was not well e valuated. The left kidney appears slightly larger compared to the right and there is mild perinephric stranding on the left which is not present on the right. Urinary bladder is within normal limit. No intestinal obstruction, acute appendicitis or diverticulitis. No free air or ascites. Prominent upper retroperitoneal lymph nodes noted with no enlarged lymph nodes. Moderate severe degenerative changes are seen in the thoracic and lumbar spine. There is mild posteri or translation of L5 over S1. There is no acute osseous abnormality or aggressive osseous lesion. Sof t tissues unremarkable. IMPRESSION: LEFT DISTAL UVJ 2 MM CALCULUS WITH MILD LEFT HYDROURETER AND HYDRONEPHROSIS AND LEFT PERINEPHRIC STRA NDING, CLINICAL CORRELATION FOR PYELONEPHRITIS RECOMMENDED. TINY 1 MM SCATTERED CALCULI IN THE RIGHT KIDNEY LIKELY REPRESENTING VASCULAR CALCIFICATIONS RATHER TH AN RENAL COLLECTING SYSTEM CALCULI. NO HYDRONEPHROSIS ON THE RIGHT. LEFT KIDNEY UPPER POLE LOW ATTENUATING LESION NOT WELL SEEN ON THIS STUDY DUE TO LACK OF IV CONTRAST, BETTER SEEN ON PRIOR, STATISTICALLY LIKELY TO REPRESENT A CYST, OUTPATIENT ULTRASOUND KIDNEY RECOMME NDED SIMILAR TO PRIOR STUDY.
[2021-01-05] MEDS ORDERED: ONDANSETRON 4 MG/2 ML VIAL IVP STA (17:35)
[2021-01-05] MEDS ORDERED: ACET/COD 300 MG/30 MG STARTER PACK 6 TAB BTL PO STA (18:21)
[2021-01-05 18:37] VITALS: BP 153/105; PULSE 73; RESP 18
== END 2021-01-05 18:33 | disposition home or self-care (01) ==
LOC: EC 15:30
DX: N13.2 Hydronephrosis with renal and ureteral calculous obstruction (principal); I10 Essential (primary) hypertension; Z88.5 Allergy status to narcotic agent; Z79.899 Other long term (current) drug therapy; Z88.8 Allergy status to other drugs, medicaments and biological substances
CPT/HCPCS: 36415; 80053; 82150; 83690; 85025; 81001; 74018; 74176; 99284; 96374; 96375; 96361; J2405; J1885; J1170

== ENCOUNTER 2021-08-14 10:47 | Day surgery (SDC) | payer OTHER ==
[2021-08-11 09:52] VITALS: BMI 29.2
[~2021-08-14 10:47] MED LIST: HYDROmorphone 0.5 MG/0.5 ML SYRINGE IVP PRN; LACTATED RINGERS 1,000 ML IV SCH; LIDOCAINE 1% (10MG/ML) FOR IV START INTRADERMA PRN; ONDANSETRON 4 MG/2 ML VIAL IVP ONE
[2021-08-14] MEDS ORDERED: DEXAMETHASONE SOD PHOSPHATE 4 MG/ML 1 ML VIAL IV ONE (11:15)
[2021-08-14] MEDS ORDERED: MIDAZOLAM 2 MG/2 ML VIAL IVP ONE (11:59)
[2021-08-14] MEDS ORDERED: fentaNYL (PF) 50 MCG/ML 2 ML AMP IVP ONE (11:59)
[2021-08-14 12:12] VITALS: RESP 16
[2021-08-14] MEDS ORDERED: MIDAZOLAM 2 MG/2 ML VIAL ONE (12:42)
[2021-08-14] MEDS ORDERED: fentaNYL (PF) 50 MCG/ML 2 ML AMP ONE (12:42)
[2021-08-14] MEDS ORDERED: ROPIVACAINE 5 MG/ML 30 ML VIAL ONE (12:42)
[2021-08-14] MEDS ORDERED: KETAMINE 10 MG/ML 20 ML VIAL ONE (12:42)
[2021-08-14] MEDS ORDERED: PROPOFOL 10 MG/ML 20 ML VIAL IV ONE (12:42)
[2021-08-14] MEDS ORDERED: LACTATED RINGERS 1,000 ML IV ONE (14:33)
[2021-08-14 15:09] VITALS: TEMP 98
[2021-08-14 15:52] VITALS: BP 135/74; PULSE 59
--- NOTE | 2021-08-14 17:20 | P.ANPRN ---
Procedure Note - Anesthesia - Nerve Block Performed Left Axillary Single Time Out Performed: Yes Date of Procedure: 08/14/21 Procedure Start Time: 11:58 Procedure Stop Time: 12:08 Location of Patient: PreOp Indication: Acute Post-Operative Pain, Dx/Pain Location, Requested by Surgeon Specifically requested for management of pain by DrJustine: Radha See Sedation Type: Sedate with meaningful contact maintained Preparation: Sterile Prep Position: Supine Catheter: None Needle Types: Facet Needle Gauge: 21 Ultrasound used to visualize needle placement: Yes Ultrasound used to observe medication spread: Yes Injectate: 0.5% Ropivacaine (see comment for volume) Blood Aspirated: No Pain Paresthesia on Injection Noted: No Resistance on Injection: Normal Image Stored and Saved: Yes Events: Uneventful and Well Tolerated (20cc 0.5% ropivacaine)
--- NOTE | 2021-08-15 14:39 | P.OP ---
Date of Procedure: 08/14/21 Preoperative Diagnosis: Left recurrent carpal tunnel syndrome Left pronator syndrome Postoperative Diagnosis: same Procedure(s) Performed: 1. Left revision carpal tunnel release 2. Left median nerve decompression in the forearm Anesthesia: regional Surgeon: Radha See Qa Auditor #1: Ana M Garnett Estimated Blood Loss (ml): 20 Condition: stable Disposition: PACU Indications for Procedure: Zaki is a 41 year old male with weakness, pain, and tingling in his forearm and hand. He has numbness intermittently in the median nerve distribution of his hand and palm and weakness of his hands and forearm with use. 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 He had a previous carpal tunnel release which did not do much for his symptoms. On exam, he has weakness with resisted pronation and also with repeated pronosupination. He has a positive Tinels over the pronator tunnel. EMG shows some residual carpal tunnel syndrome. We had a long discussion about his treatment options and he would like to proceed with decompression of his median nerve proximally and a redo of his carpal tunnel. Description of Procedure: Patient, operative extremity, and procedure were identified in the preop holding area. After informed consent was obtained, the patient got a regional block by the anesthesia team. He was then brought back to the operating room. The extremity was prepped and draped in normal sterile fashion with a tourniquet on the brachium. After a formal timeout was done, the tourniquet was inflated. Attention was first turned to the carpal tunnel. The previous incision was extended to cross the wrist crease. Dissection was taken down to the forearm fascia proximally. This was released to reveal the flexor tendons. This was carried distally through the scar tissue of the transverse carpal ligament. This was released in its entirety until the distal palmar fascia was seen. The contents of the carpal tunnel were then scrutinized. The median nerve was somewhat adherent to the superficial scar tissue but was easily mobilized and in good condition. There was however copious tenosynovitis surrounding the tendons. This was debulked and a sample was sent for pathology. The would was then provisionally closed. We then turned our attention proximally. A lazy S incision was made just distal to the AC crease in the center of the forearm. Dissection was carried down to the forearm fascia with care taken to protect the cutaneous nerves. The lacertus fibrosis was identified. This was quite thick and was released between the vessels and the flexor pronator muscles. Careful dissection about the vessels revealed the median nerve. Crossing vessels were clipped and divided. The nerve was followed distally. The deep head of the pronator teres was compressing the nerve and was released. Digital palpation distally with a full range of pronosupination did not reveal any further areas of compression. The same assessment was made proximally and there was no further proximal compression. The tourniquet was then let down and hemostasis achieved. Both wounds were closed in a layered fashion with 4.0 monocryl and skin glue. The wounds were dressed with adaptic, gauze, and an janice wrap. Patient was aroused by the anesthesia team and will follow up with us in 2 weeks.
== END 2021-08-14 16:15 | disposition home or self-care (01) ==
LOC: OR 10:47
PROVIDERS: ATTEND Orthopaedic Surgery Hand Surgery
DX: G56.02 Carpal tunnel syndrome, left upper limb (principal); G56.12 Other lesions of median nerve, left upper limb; I10 Essential (primary) hypertension; R42 Dizziness and giddiness; R51.9 Headache, unspecified; Z79.1 Long term (current) use of non-steroidal anti-inflammatories (NSAID); Z79.891 Long term (current) use of opiate analgesic; Z79.899 Other long term (current) drug therapy; Z88.5 Allergy status to narcotic agent; Z88.8 Allergy status to other drugs, medicaments and biological substances
CPT/HCPCS: 64721; 64415; 76942; 88304; J2250; J1100; J0690; J2405; J3010; J2795; J2704

== ENCOUNTER → 2022-04-09 | Outpatient (CLI) | payer OTHER ==
[2022-04-09 12:47] VITALS: BP 157/92; PULSE 79; RESP 18
--- NOTE | 2022-04-09 15:11 | P.PAINPG ---
Objective - Vital Signs Vital signs: Vital Signs Temp Pulse 79 04/09/22 12:40 Resp 18 04/09/22 12:40 BP 157/92 04/09/22 12:40 Pulse Ox 98 04/09/22 12:40 FiO2 Intake & Output 04/08/22 04/09/22 04/09/22 18:59 06:59 18:59 Weight 95.254 kg PQRS Measure Charge Sheet Mode of Arrival: Ambulatory Comment: HISTORY OF PRESENT ILLNESS: 42 yr old male as a referral from Ana M Garnett NPC presents today w severe and chronic BL hand pain secondary to for evaluation. Pt states his pain level is at 10 /10 w use of hands for periods of 20 min or more, cramping/ throbbing in character, localized in BL wrists w shooting towards BL elbows and BL shoulders. Pain is alleviated w PT in early 2021, chiropractic treatments as needed, daily exercises, alternating heat & ice, medications (Motrin), Lidoderm ineffective, massage at home and rest. PMH: HTN, Seizure Disorder, ADD/ADHD, Anxiety Additional Past Medical History / Comment(s): chronic back pain, torn mc PSH: LESIs, ACL Repair, R knee MCL Repair, CTR SH: No tobacco use, Occasional ETOH use, +Cannabis use FH: Non contributory All: See list Meds: See list REVIEW OF ORGAN SYSTEMS: CONSTITUTIONAL: No fevers or chills. No recent weight loss. NEUROLOGICAL: + numbness and tingling along the distal extremities. No seizure disorders or headaches. MUSCULOSKELETAL: + pain PSYCHIATRIC: Denies current depression or suicidal thoughts. Physical Examinations : Constitutional : Cooperative , not in acute distress . Neurologic : Cranial nerve II to XII intact. No focal neurological deficits. Psychiatric : alert & oriented x 3. Matching mood & appropriate affect. Judgment & insight intact. Musculoskeletal : BL Ulnar Nerve TTP while in flexion Cervical Spine Motor strength in the deltoid and biceps: Normal right side. Normal Left side Motor strength biceps and the wrist extensors: Normal right side . Normal left side Motor strength in the triceps muscle: Normal right side. Normal left side Deep tendon reflexes: Normal at the biceps. Normal at Brachioradialis. Normal at triceps Vertebral body tenderness to deep palpation over Cervical facet loading test: positive bilaterally Spurling test: positive bilaterally Neck distraction test: positive bilaterally Sandra sign: positive bilaterally Lumbar spine Motor strength lower extremities ,thigh and legs 5/5 Right side , 5/5 Left side Deep tendon reflexes : Normal Knee Jerk. Normal Ankle Jerk Vertebral body tenderness over Lumbar facet Loading Test: positive Right / positive Left Range of motion of the lumbar spine Flexion 30 degrees, extension 10 degrees Straight Leg Raise test: Left/ Right positive at degree Joe test: positive right / positive left. Severe tenderness over the Sacroiliac joint on the Right / Left sides Gaenslen test: positive bilaterally Seated flexion test: positive xavier aterally. Sacral spine : Severe tenderness over the Sacroiliac joint: right side / left side Range of motion: Flexion of the lumbar spine <60 degrees Range of motion: Extension of the lumbar spine <20 degrees Gaenslen's Test positive Clyde's Test positive Joe test: positive right side / left side Thigh Thrust Test Sacral Thrust Test Imaging: MRI of the cervical spine without contrast from 04/14/21 reviewed Assessment/ Plan : BL Cubital Tunnel Syndrome Recommendation of BL Ulnar Nerve/ Cubital Tunnel Syndrome injections. May need a series, up to 4 within a 12 mo period, for optimal pain relief. Risks, benefits of procedure discussed and patient verbalized understanding. Admits to aspirin or anti- coagulant use or medical history of diabetes. Protocol for discontinuation/ continuation of medications bandar procedure discussed. All questions answered. I have spent greater than 30 minutes on patient care today. Dr Anton was available by phone for the evaluation of this patient. The time was used to review the medical records including relevant urine studies and Prescription history (MAPs), review of the available imaging, evaluation and examination of the patient, coordination of care with the medical staff and if applicable referring physicians, as well as creation of the medical record - Pain Location Bilateral Wrist Non-Pharmacological Interventions: Chiropractic Treatment, Heat, Home Exercise, Ice, Inactivity, Massage, Physical Therapy, Position/Reposition, Stretching Pharmacological Interventions: PRN Medication, Topical Medication PQRS Narrative: Smoking Status Never smoker Blood Pressure 157/92 Pain Intensity [Bilateral 6 Wrist] Scale Used Numeric (1 - 10) Hx Alcohol Use (MH) No Home Medications: Ambulatory Orders lisinopriL [Zestril] 20 mg PO BID 05/09/18 ALPRAZolam [Xanax] 0.5 mg PO HS PRN 08/11/21 Ibuprofen 200 mg PO Q8H PRN 08/11/21 Controlled Substance Measures - Controlled Substance Measures Is patient prescribed a controlled substance at discharge?: No
== END ==
LOC: PNWHC3 12:16
PROVIDERS: ATTEND Specialist
DX: G56.21 Lesion of ulnar nerve, right upper limb (principal); I10 Essential (primary) hypertension; F41.9 Anxiety disorder, unspecified; Z88.8 Allergy status to other drugs, medicaments and biological substances; Z88.5 Allergy status to narcotic agent; Z88.1 Allergy status to other antibiotic agents; Z88.4 Allergy status to anesthetic agent
CPT/HCPCS: 99211

== ENCOUNTER 2022-05-24 10:48 | Day surgery (SDC) | payer OTHER ==
[2022-05-22 09:13] VITALS: BMI 27.1
[~2022-05-24 10:48] MED LIST changes: -HYDROmorphone 0.5 MG/0.5 ML SYRINGE IVP PRN; -ONDANSETRON 4 MG/2 ML VIAL IVP ONE
[2022-05-24 11:13] VITALS: TEMP 97
[2022-05-24] MEDS ORDERED: methylPREDNISolone ACETATE 80 MG/ML 1 ML VIAL ONE (12:31)
[2022-05-24] MEDS ORDERED: fentaNYL (PF) 50 MCG/ML 2 ML AMP ONE (12:31)
[2022-05-24] MEDS ORDERED: ROPIVACAINE 5 MG/ML 20 ML AMPULE ONE (12:31)
[2022-05-24] MEDS ORDERED: MIDAZOLAM 2 MG/2 ML VIAL ONE (12:31)
[2022-05-24] MEDS ORDERED: IV FLUID CONTINUATION 1,000 ML IV ONE (12:53)
[2022-05-24 12:58] VITALS: RESP 18
--- NOTE | 2022-05-24 12:58 | P.PCN ---
Date of Procedure: 05/24/22 Procedure(s) Performed: Procedure= bilateral ulnar nerve block under ultrasound guidance (ultrasound was used to verify the needle placement ) Preoperative diagnosis= 1-bilateral ulnar nerve neuralgia. Postoperative diagnosis=Same as preop Diagnosis . Complication = none Condition= stable Anesthesia= moderate sedation with intravenous Versed 2 mg , and fentanyl 50 micrograms . Sedation start time: 1234 Sedation end time : 1249 Indication for the procedure= patient complaining of severe and chronic bilateral upper extremity pain and numbness started several years ago, patient had multiple surgical interventions in his upper extremity without any benefit and he tried multiple medication without any benefit, and he is here today to have bilateral ulnar nerve block, patient had the pain and numbness radiates from the elbow area bilaterally towards the upper extremities to the wrist and medial aspect of the hand bilaterally, procedure risk and benefits and alternatives discussed with the patient and he agreed with the preceding , sedation was used to decrease the patient's anxiety , standard monitors applied to the patient ,patient taken to the procedure room placed in supine position, first I did the right ulnar nerve block at the right elbow location, the area prepped with Betadine 3 been under strict sterile technique local infiltration of the skin and subcu interstitial ropivacaine 0.5% one mL then 21-gauge ultrasound to pujunk needle, advanced slowly under ultrasound, and placed adjacent to the right ulnar nerve ( at the elbow area ), then after negative aspiration for heme, and there was no paresthesia during the injection a total of 3 mL of ropivacaine 0.5% mixed with 40 mg of Depo-Medrol injected after negative aspiration and then the exact same procedure done for the left side, and I did the left ulnar nerve block at the elbow and a injected 3 mL of ropivacaine 0.5% mixed with 40 mg of Depo-Medrol injection done after negative aspiration and there was no paresthesia during the injection, patient tolerated the procedure well without any complications and he will follow up with the pain clinic in a few weeks for reevaluation
[2022-05-24 13:09] VITALS: BP 114/74; PULSE 60
== END 2022-05-24 13:24 | disposition home or self-care (01) ==
LOC: ORPAIN 10:48
PROVIDERS: ATTEND Specialist
DX: G56.21 Lesion of ulnar nerve, right upper limb (principal)
CPT/HCPCS: 20526; J2250; J1040; J3010; J2795; 99152

== ENCOUNTER → 2022-05-31 | Outpatient (CLI) | payer OTHER ==
[2022-05-31 08:06] VITALS: BP 159/97; PULSE 90; RESP 18; TEMP 97.8
--- NOTE | 2022-05-31 08:26 | P.PAINPG ---
Subjective Progress Note Date: 05/31/22 Principal diagnosis: Bilateral wrist pain Mr. Delacruz is a 42 -year-old pleasant male came to the [facility] pain clinic for postprocedure follow-up after bilateral ulnar nerve block on 05/24/2022 . Injection helped only 10% -20% of the pain relief. Which lasted for 2 days. He had bilateral ulnar nerve release, not helpful. Patient describes pain is aching, burning, numbness, tingling type of pain. Pain is radiating from elbows to wrist area, and fourth and fifth finger. No radiating pain from neck to upper extremities. Patient rated pain levels are 6 out of 10 in severity. With the help of medications pain levels are 4-10 out of 10 in severity. Activities making pain worse. Medications, resting helping in relieving patient's pain. 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 Sometime difficulty in performing the work. Patient pain some days better than others. Overall activities decreased secondary to pain. Because of the pain sometimes patient is feeling lack of sleep, interest, and energy. Denied any side effects with the medications. He uses marijuana as needed. Denied any bowel or bladder problems at this time. Not using any walking aids. Patient denies any suicidal or homicidal ideations intent or plan. Patient denies any auditory or visual hallucinations. Patient denied any red flag symptoms related to pain. He is planning to go to seen neurologist, and pain physician clinic in [facility]. He tried multiple conservative treatment options including physical therapy, chiropractic therapy, heat, massage therapy, interventional procedures, Neurontin, and Lyrica with minimal relief. Objective - Exam General: Well-developed, well-nourished, no acute distress HEENT: Normocephalic, and atraumatic Neck: Supple, no neck swelling Psychiatric: Appropriate mood, and affect [employer]: No focal neurological deficits Musculoskeletal: Upper extremity: Normal strength, and range of motion. Sensation grossly intact. Tinel sign positive over the lateral medial epicondyle area. Lower extremity: Normal strength, and range of motion. Lumbar spine: Cervical spine: Paravertebral tenderness: Negative Cervical spine facet viktoria: Negative Cervical spine Spurling test: Negative - Constitutional Constitutional Comment(s): 13 point review of symptoms negative except as mentioned in the history of present illness. Assessment and Plan Assessment: Bilateral ulnar neuropathy History of seizures Chronic pain syndrome Plan: #1 Diagnoses, prognosis, and multiple treatment options including but not limited to physical therapy, interventional therapy, adjunct medication therapy, narcotic medication, and surgical options were discussed with the patient. And all questions were answered to the patient's satisfaction. #2 treatment plan agreement : Patient was thoroughly discussed regarding the treatment options, alternatives, and importance of exercises as tolerated. Patient clearly understood. #3 Patient was counseled on importance of regular exercise. Including yusuf chi, aerobic exercises as tolerated. Which helps for chronic pain, and overall well- being. #4 investigations: MAPS- reviewed , urine drug test- none #5 diagnostic tests: None at this time, he had multiple EMGs done in the past. #6 consultation : Neurologist, , and [facility]-pain clinic consultation # 7 interventional procedures: None at this time . Discussed with the patient regarding NALU peripheral nerve stimulation option after [facility] evaluation. #8 medications #1 multivitamin, vitamin B12, vitamin B6 #2 magnesium oxide 400 mg by mouth daily #9 morphine milligrams equivalents dose ( MME) per day: 0 from the pain clinic. He is using marijuana as needed. #10 disposition: scheduled to follow up with pain clinic as needed in future. Time with Patient: Less than 30 PQRS Measure Charge Sheet Measure #130: Documentation of Current Meds in Medical Chart: Patient's medications documented in chart (The patient reports) Measure #226: Tobacco Use: Screen & Cessation Intervention: Pt not a tobacco user Measure #111: Pneumonia Vaccination: Pneumococcal vaccine NOT administered or previously given Measure #47: Advance Care Plan: Advance care planning discussed & documented, pt chose/unable to give Measure #412: Opioid Treatment Agreement: No documentation of signed opioid treatment agreement Measure #408: Opioid Therapy Follow-up Evaluation: Patient had NO f/u eval minimum every 3 months during opioid therapy Measure #317: Preventitive Care & Scrn High Bld Press & F/U: Pre-hypertensive or hypertensive BP documented, pt will f/u with PCP Measure #128: Body Mass Index (BMI) Screening & Follow-up: BMI documented within normal parameters Measure #131: Pain Assessment & Follow-up: Pain positive & plan documented Measure #431: Unhealthy Alcohol Use Preventative Care & Scrn: Patient not identified as an unhealthy alcohol user PQRS Narrative: Smoking Status Never smoker Hx Alcohol Use (MH) No Home Medications: Ambulatory Orders lisinopriL [Zestril] 20 mg PO BID 05/09/18 ALPRAZolam [Xanax] 0.5 mg PO HS PRN 08/11/21 Ibuprofen 800 mg PO Q8H PRN 08/11/21 HYDROcodone/APAP 5-325MG [[place] 5-325] 1 tab PO Q6HR PRN 3 Days #12 tab 05/16/22 Controlled Substance Measures - Controlled Substance Measures Is patient prescribed a controlled substance at discharge?: No
== END ==
LOC: PNWHC3 07:39
DX: G89.4 Chronic pain syndrome (principal); Z82.0 Family history of epilepsy and other diseases of the nervous system; G56.21 Lesion of ulnar nerve, right upper limb; G56.22 Lesion of ulnar nerve, left upper limb; Z88.5 Allergy status to narcotic agent; Z88.8 Allergy status to other drugs, medicaments and biological substances
CPT/HCPCS: 99211